=== PATIENT | female | born 1955 | race Caucasian/White ===

== ENCOUNTER → 2018-10-12 07:07 | Outpatient (CLI) | payer MEDICARE, SELFPAY ==
--- NOTE | 2018-10-12 10:28 | NEURO ---
NCS and/or EMG Patient Report Ordering Doctor: Sheldon Flower DATE OF SERVICE: 10/12/18 This is a bilateral upper extremity nerve conduction study performed on this 63-year-old female with a history of coldness sensation as well as numbness and tingling in both hands worse on the left. There is a history of carpal tunnel surgery on the left in 2017. No history of diabetes or neck pain. Bilateral upper extremity sensory and motor nerve conduction studies were performed demonstrating moderate prolongation of the median motor and sensory distal latencies with preservation of amplitudes and conduction velocities although there is asymmetric reduction of amplitude on the left consistent with worse symptoms on the left. The ulnar motor and sensory and radial sensory responses are normal. The median F wave latencies bilaterally are somewhat prolonged. Impression: Abnormal nerve conduction study of the bilateral upper extremities consistent with moderate residual bilateral carpal tunnel syndrome.
== END ==
PROVIDERS: Referring Provider Orthopaedic Surgery; Visit Provider Orthopaedic Surgery
DX: G56.02 Carpal tunnel syndrome, left upper limb (principal)
CPT/HCPCS: 95911

== ENCOUNTER → 2018-12-02 09:10 | Outpatient (CLI) | payer MEDICARE, SELFPAY ==
[2018-11-24 17:06] VITALS: BMI 19.7
[2018-12-02 12:43] LABS: Absolute Lymphocyte Count 2.24 X10^3/ul (0.83-4.51); Absolute Neutrophil Count 3.3 X10^3/uL (2.0-7.7); Basophil# 0.05 X10^3/uL; Basophil% 0.8 % (0-1); Eosinophil# 0.25 X10^3/uL; Eosinophils% 3.9 % (0-5); Hematocrit 45.6 % (37-47); Hemoglobin 15.7 g/dl (12.0-15.0); Lymphocyte # 2.24 X10^3/ul (4.0); Lymphocyte % 34.8 % (19-41); Mean Corp Hgb Conc 34.4 g/gl (32-36); Mean Corpuscular Volume 95.8 fL (81-99); Mean Platelet Vol. 10.3 fl (6.2-12.0); Monocyte# 0.58 X10^3/uL; Neutrophil # 3.32 X10^3/uL (2.7-7.7); Neutrophil % 51.5 % (47-70); Platelet Count 268 K/mm3 (150-450); RBC Distribution Width CV 12.9 % (11.6-14.6); RBC Distribution Width SD 44.3 fl (35.1-43.9); Red Blood Count 4.76 M/mm3 (4.2-5.4); White Blood Count 6.4 K/mm3 (4.4-11.0)
[2018-12-02 12:48] LABS: POSITIVE COUNT NO; POSITIVE DIFFERENTIAL NO; POSITIVE MORPHOLOGY NO
[2018-12-02 13:24] LABS: ALB/GLOB Ratio 0.7 RATIO (0.9-2.4); AST(SGOT) 29 U/L (15-37); Alanine Aminotransfer ALT/SGPT 37 U/L (13-56); Albumin, Serum 3.2 g/dL (3.2-5.0); Alkaline Phosphatase 90 U/L (45-117); Anion Gap 9 (5-15); BUN 6 mg/dL (7-18); BUN/Creat Ratio 12.3 RATIO (10-20); Calcium,Total 8.9 mg/dL (8.5-10.1); Chloride 101 mmol/L (98-107); Creatinine, Serum 0.49 mg/dL (0.55-1.02); EST Glomerular Filtration Rate 137 mL/min (>60); Est Glom Filt Rate - Afr Amer 166 mL/min (>60); Globulin 4.6 g/dL (2.2-4.2); Glucose 60 mg/dL (74-106); Potassium 4.1 mmol/L (3.5-5.1); Protein, Total 7.8 g/dL (6.4-8.2); Sodium Level 137 mmol/L (136-145); T4 Free Direct 0.83 ng/dL (0.76-1.46); Thyroid Stim Hormone (TSH) 1.86 uIU/mL (0.358-3.74)
== END ==
PROVIDERS: PCP Internal Medicine; Visit Provider Internal Medicine
DX: J44.9 Chronic obstructive pulmonary disease, unspecified (principal); F17.210 Nicotine dependence, cigarettes, uncomplicated; R63.4 Abnormal weight loss
CPT/HCPCS: 36415; 80053; 84439; 84443; 85025

== ENCOUNTER 2020-07-17 16:55 | Inpatient (IN) | payer MEDICARE, MEDICAID, SELFPAY ==
[2018-11-24 17:06] VITALS: BMI 19.7
[2020-07-17] VITALS (13 sets, daily range): BP systolic 118–172; BP diastolic 56–101; PULSE 110–132; RESP 20–30; TEMP 36.2–37; O2SAT 90–95; BMI 21.4
--- NOTE | 2020-07-17 17:05 | EKG12_ITS ---
Test Reason : CP Blood Pressure : / mmHG Vent. Rate : 126 BPM Atrial Rate : 126 BPM P-R Int : 160 ms QRS Dur : 086 ms QT Int : 310 ms P-R-T Axes : 078 063 074 degrees QTc Int : 448 ms Sinus tachycardia Otherwise normal ECG Confirmed by ADALBERTO PRIETO, ISAÍAS ([id number]), brands editor DEEP LOJA ([id number]) on 07/19/2020 8:26:39 AM Referred By: DAYSI Confirmed By:ISAÍAS GLOVER MD
[2020-07-17 17:18] LABS: Absolute Lymphocyte Count 0.29 X10^3/uL (0.83-4.51); Absolute Neutrophil Count 8.8 X10^3/uL (2.0-7.7); Basophil# 0.01 X10^3/uL; Basophil% 0.1 % (0-1); Eosinophil# 0.06 X10^3/uL; Eosinophils% 0.6 % (0-5); Hematocrit 37.8 % (37-47); Hemoglobin 13.9 g/dL (12.0-15.0); Lymphocyte # 0.29 X10^3/ul (4.0); Mean Corp Hgb Conc 36.8 g/dL (32-36); Mean Corpuscular Hgb 34.2 pg (27.0-32.0); Mean Corpuscular Volume 92.9 fL (81-99); Mean Platelet Vol. 10.5 fl (6.2-12.0); Monocyte# 0.34 X10^3/uL; Monocyte% 3.6 % (0-10); NRBC Flagged by Analyzer 0 % (0-5); Neutrophil # 8.83 X10^3/uL (2.7-7.7); Neutrophil % 92.3 % (47-70); POSITIVE DIFFERENTIAL YES; POSITIVE MORPHOLOGY YES; Platelet Count 224 K/mm3 (150-450); RBC Distribution Width CV 11.5 % (11.6-14.6); Red Blood Count 4.07 M/mm3 (4.2-5.4); White Blood Count 9.6 K/mm3 (4.4-11.0)
--- NOTE | 2020-07-17 17:27 | ED.DCSUM_ITS ---
History of Present Illness Chief Complaint: Chest Pain Informant: Patient Narrative: 64-year-old female who is a smoker for many years and a history of COPD presenting with shortness of breath for about a week. She states she feels like she is wheezing. Patient has not had fever, change in taste or smell, body aches. She does state that she feels chills. Patient had a family gathering on [place] of 8 people. Other than that she states he stays home. Patient states that she developed chest pain 2 days ago. It feels aching and is intermittent. Patient denies cardiac history. Past Medical History - Allergies and Home Meds Allergies/Adverse Reactions: Allergies No Known Allergies Allergy (Verified 07/17/20 17:03) Prior records reviewed: Yes Past Medical History: - - COPD, arthritis Surgical History: noncontributory Lives: Alone Smoking Status: Current every day smoker Alcohol: None Drugs: None Review of Systems General: Reports: - - Chills. Denies: Chills, Fever, Malaise Eyes: Denies: Visual changes - bilaterally, Diplopia ENT: Denies: Rhinorrhea, Sore throat Cardiovascular: Reports: Chest pain. Denies: Palpitations Respiratory: Reports: Dyspnea, Cough Gastrointestinal: Denies: Abdominal pain, Nausea Genitourinary: Denies: Dysuria, Hematuria Musculoskeletal: Denies: Myalgias, Arthralgias Skin: Denies: Rash, Abscess Neurological: Denies: Headache, Parasthesia, Numbness Psych: Denies: Depression, Anxiety Physical Exam Vital Signs/Narrative: Vital Signs Temp Pulse Resp BP Pulse Ox 07/17/20 17:09 92 07/17/20 17:01 97.1 F L 130 H 28 H 169/94 H 92 07/17/20 16:56 97.1 F L 132 H 30 H 169/94 H 90 General: Cachectic, No Acute Distress Head: Normocephalic, Atraumatic Eyes: Perrl, EOMI ENT: Dry mucous membranes. Negative for: No rhinorrhea, Nasal congestion Cardiovascular: Regular rhythm, Tachycardia Respiratory: No distress, Diminished - Diminished at bilateral bases., - - Bibasilar crackles.. Negative for: Retractions Extremities: Nontender, No edema Skin: Normal color, No rash. Negative for: Cyanosis, Diaphoresis Neurological: Alert, Oriented x3, Cranial nerves II-XII grossly intact Psychological: Normal affect, Normal Mood Diagnostic/Tx/Re-eval Clinical Impression(s) from Imaging Studies Chest X-Ray 07/17/20 17:28 IMPRESSION: Right basilar infiltrate. Electronically Signed: Luisania Leiva DO at 17:50 EST Tel [phone], Service support , Chest CTA 07/17/20 18:55 IMPRESSION: No demonstrated pulmonary embolism or arterial dissection. There is a right lower lobe infiltrate/consolidation. Mild patchy groundglass densities in the left lung. Electronically Signed: Luis Leiva DO at 20:00 EST Tel [phone], Service support , Laboratory Data 07/17/20 07/17/20 07/17/20 17:02 17:02 17:02 WBC 9.6 RBC 4.07 L Hgb 13.9 Hct 37.8 MCV 92.9 MCH 34.2 H MCHC 36.8 H RDW Std Deviation 39.0 RDW Coeff of [place] 11.5 L Plt Count 224 MPV 10.5 Immature Gran % (Auto) 0.400 Neut % (Auto) 92.3 H Lymph % (Auto) 3.0 L Frio % (Auto) 3.6 Eos % (Auto) 0.6 Baso % (Auto) 0.1 Absolute Neuts (auto) 8.8 H Absolute Lymphs (auto) 0.29 L Nucleated RBC % 0 Differential Comment SCANNED D-Dimer Quant (PE/DVT) 3.65 H* Sodium 122 L Potassium 2.8 L Chloride 82 L Carbon Dioxide 25.0 Anion Gap 15 BUN 30 H Creatinine 0.94 Estim Creat Clear Calc 60.34 Est GFR (MDRD) Af Amer 77 Est GFR (MDRD) Non-Af 64 BUN/Creatinine Ratio 31.8 H Glucose 93 Lactic Acid Calcium 8.8 Troponin I < 0.015 B-Natriuretic Peptide Procalcitonin Urine Color Urine Clarity Urine pH Ur Specific [place] Urine Protein Urine Glucose (UA) Urine Ketones Urine Occult Blood Urine Nitrite Urine Bilirubin Urine Urobilinogen Ur Leukocyte Esterase Urine RBC Urine WBC Ur Squamous Epith Cells Urine Bacteria Urine Mucus COVID-19 (YUMIKO) 07/17/20 07/17/20 07/17/20 17:02 17:02 17:40 WBC RBC Hgb Hct MCV MCH MCHC RDW Std Deviation RDW Coeff of [place] Plt Count MPV Immature Gran % (Auto) Neut % (Auto) Lymph % (Auto) Frio % (Auto) Eos % (Auto) Baso % (Auto) Absolute Neuts (auto) Absolute Lymphs (auto) Nucleated RBC % Differential Comment D-Dimer Quant (PE/DVT) Sodium Potassium Chloride Carbon Dioxide Anion Gap BUN Creatinine Estim Creat Clear Calc Est GFR (MDRD) Af Amer Est GFR (MDRD) Non-Af BUN/Creatinine Ratio Glucose Lactic Acid Calcium Troponin I B-Natriuretic Peptide 42.6 Procalcitonin 23.89 H Urine Color Urine Clarity Urine pH Ur Specific [place] Urine Protein Urine Glucose (UA) Urine Ketones Urine Occult Blood Urine Nitrite Urine Bilirubin Urine Urobilinogen Ur Leukocyte Esterase Urine RBC Urine WBC Ur Squamous Epith Cells Urine Bacteria Urine Mucus COVID-19 (YUMIKO) Negative 07/17/20 07/17/20 18:50 18:50 WBC RBC Hgb Hct MCV MCH MCHC RDW Std Deviation RDW Coeff of [place] Plt Count MPV Immature Gran % (Auto) Neut % (Auto) Lymph % (Auto) Frio % (Auto) Eos % (Auto) Baso % (Auto) Absolute Neuts (auto) Absolute Lymphs (auto) Nucleated RBC % Differential Comment D-Dimer Quant (PE/DVT) Sodium Potassium Chloride Carbon Dioxide Anion Gap BUN Creatinine Estim Creat Clear Calc Est GFR (MDRD) Af Amer Est GFR (MDRD) Non-Af BUN/Creatinine Ratio Glucose Lactic Acid 2.2 H* Calcium Troponin I B-Natriuretic Peptide Procalcitonin Urine Color Yellow Urine Clarity Clear Urine pH 5.0 Ur Specific [place] 1.015 Urine Protein 30 H Urine Glucose (UA) Normal Urine Ketones 5 H Urine Occult Blood 10 H Urine Nitrite Negative Urine Bilirubin Negative Urine Urobilinogen Normal Ur Leukocyte Esterase 25 H Urine RBC 0 SEEN Urine WBC 0-5 SEEN Ur Squamous Epith Cells 5-10 SEEN Urine Bacteria 1+ Urine Mucus 0 SEEN COVID-19 (YUMIKO) - Rhythm Strip Rhythm Strip: Sinus Rhythm Rate: 126 - EKG Initial EKG Interpretation: No Acute Injury Pattern, Sinus Tachycardia - Medical Decision Making Patient presenting with shortness of breath for several days as well as chest pain x2 days. She had EKG performed on arrival which showed sinus tachycardia without signs of ischemic change. Patient is tachypneic as well. Patient was pancultured and given a liter of fluids. She was tested for Covid while awaiting lab work. Patient's lab work shows no leukocytosis and lymphopenia. Her BMP shows a slight hypokalemia and this was replaced with oral potassium 40 mEq. She is dehydrated. Lactic acid 2.2 procalcitonin 23.89. Troponin negative. D-dimer is elevated at 3.65. Chest x-ray is interpreted by myself and radiology shows a right lower lobe infiltrate. Since her D-dimer was elevated I did obtain a CTA. This shows a right lower lobe infiltrate as well as groundglass opacities in the left lung. After negative Covid test patient was given more IV fluids given her dehydration and recent CTA. Patient remains tachypneic and tachycardic and since she needs sepsis criteria I started Rocephin and azithromycin. Discussed with hospitalist who recommended admitting her to [facility] given her labs being consistent with Covid even though her testing is negative. She will obtain ID consult to determine if retesting is appropriate. Patient will be admitted to [facility] in stabilized condition. Impression: 1. Right lower lobe infiltrate 2. Sepsis 3. Dehydration 4. Hypokalemia 5. Chest pain ED Disposition - Plan for ED Patient: Disposition: Acute Care Hospital [facility]
--- NOTE | 2020-07-17 17:28 | RAD_ITS ---
STUDY: X-RAY CHEST REASON FOR EXAM: Female, 64 years old. Chest pain off and on. SOB increasing over the last week. TECHNIQUE: Frontal view COMPARISON: 06/19/2015 FINDINGS: The lungs are expanded. Right basilar infiltrate. Normal size heart. Normal mediastinum and rich. Normal visualized pulmonary arteries. Normal visualized aortic arch and descending thoracic aorta. Mild degenerative changes and scoliosis of the thoracic spine. Normal visualized ribs, clavicles, and shoulders. There is no demonstrated abnormality of the visualized soft tissue structures of the upper abdomen. RAD/Chest 1 View (Portable) IMPRESSION: Right basilar infiltrate. Electronically Signed: Luis Leiva DO at 17:50 EST Tel [phone], Service support ,
[2020-07-17 17:32] LABS: Differential Indicated SCAN CRITERIA MET
[2020-07-17 17:39] LABS: D-Dimer Quantitative (DVT/PE) 3.65 FEU/ug/m (0.27-0.49)
[2020-07-17 17:41] LABS: Anion Gap 15 (5-15); BUN 30 mg/dL (7-18); BUN/Creat Ratio 31.8 RATIO (10-20); Calcium,Total 8.8 mg/dL (8.5-10.1); Chloride 82 mmol/L (98-107); Creatinine, Serum 0.94 mg/dL (0.55-1.02); EST Glomerular Filtration Rate 64 mL/min (>60); Est Glom Filt Rate - Afr Amer 77 mL/min (>60); Estimated Creatinine Clearance 60.34 ml/min; Glucose 93 mg/dL (74-106); Potassium 2.8 mmol/L (3.5-5.1); Sodium Level 122 mmol/L (136-145)
[2020-07-17 18:02] LABS: Differential Comment SCANNED
--- NOTE | 2020-07-17 18:55 | CT_ITS ---
STUDY: CTA CHEST REASON FOR EXAM: Female, 64 years old. CHEST PAIN WITH INCREASE SOB X 1 WEEK. COUGH AND CHILLS RADIATION DOSAGE (If Supplied By Facility): CTDIvol = ( 14.65 ) mGy, DLP = ( 263.43 ) mGycm TECHNIQUE: The examination was performed with the intravenous administration of IV 100mL Isovue-370. Post-processing of the angiographic images was performed, with multiplanar reformation and 3D reconstruction. Individualized dose optimization techniques were used for this CT. COMPARISON: None. FINDINGS: Normal enhancement of the main pulmonary artery and right and left pulmonary arteries. Normal enhancement of the bilateral peripheral pulmonary arteries. There is no demonstrated pulmonary embolism. Normal thoracic aorta and visualized great vessels. There is no demonstrated aortic dissection. Normal heart and pericardium. Normal mediastinum. Normal hilar regions. Normal visualized trachea and bronchi. The lungs are well expanded. There is a right lower lobe infiltrate/consolidation. Mild patchy groundglass densities in the left lung. Normal pleura. Normal chest wall structures. Mild degenerative vertebral changes. Normal visualized upper abdomen. CT/CTA Chest W/WO Contrast IMPRESSION: No demonstrated pulmonary embolism or arterial dissection. There is a right lower lobe infiltrate/consolidation. Mild patchy groundglass densities in the left lung. Electronically Signed: Luis Leiva DO at 20:00 EST Tel [phone], Service support ,
[2020-07-17 19:02] LABS: Mucous, Urine 0 SEEN /hpf (<or=2+); Red Blood Cells-Urine 0 SEEN /hpf (0-5)
[2020-07-17 19:12] LABS: Color, Urine Yellow (Yellow); Glucose, Dipstick Normal (Normal); Ketone-Dipstick 5 mg/dl (Negative); Leukocyte Esterase-Dipstick 25 /ul (Negative); Nitrite-Dipstick Negative (Negative); Occult Blood-Urine 10 /ul (Negative); Protein-Dipstick 30 mg/dl (Negative); Specific Gravity, Urine 1.015 (1.002-1.030); Urine Bilirubin Dipstick Negative (Negative); Urine Clarity Clear (Clear); Urine Urobilinogen Normal (Normal)
[2020-07-17 19:12] LABS: Probe Check PASS; Specimen Processing Control PASS
[2020-07-17 19:16] LABS: Bacteria 1+ /hpf (None Seen); Squamous Epithelial Cells - UA 5-10 SEEN /hpf (5-10); White Blood Cells 0-5 SEEN /hpf (0-5)
[2020-07-17] MEDS: Ipratropium 0.5 MG/2.5 ML SOLUTION INHALATION (19:21)
[2020-07-17 19:30] LABS: Procalcitonin 23.89 ng/mL (0.00-0.09)
[2020-07-17] MEDS: 0.9% Normal Saline 1,000 ML 999 ML IV ×2 (19:36→20:26)
[2020-07-17] MEDS: Morphine 4 MG/ML Syringe IV (19:53)
[2020-07-17] MEDS: Ondansetron 4 MG/2 ML Vial IV (19:54)
[2020-07-17 20:09] LABS: Lactic Acid 2.2 mmol/L (0.4-1.9)
--- NOTE | 2020-07-17 20:37 | PCM.HP.STD ---
Problem List (1) Pneumonia Status: Acute Qualifiers: Pneumonia type: due to unspecified organism Laterality: right Lung location: lower lobe of lung Qualified Code(s): J18.9 - Pneumonia, unspecified organism (2) Suspected COVID-19 virus infection Status: Acute (3) Hypokalemia Status: Acute (4) Hyponatremia Status: Acute History of Present Illness Date of Admission: 07/17/20 Chief Complaint: Chest pain, shortness of breath ongoing for 3 days The patient is a 64 year old F with past medical history of COPD, not on oxygen who comes in with progressive shortness of breath, chest discomfort and chills. This has been going on for about 2 to 3 days. She denied any fever or dizziness or palpitation. Patient told the ED physician that she had family gathering at [place]. She denied any sick contact. She stated that she goes to the grocery store and has been wearing a mask. She has a cough that is productive. She also has diarrhea that started yesterday, profuse. No bowel movement today. She complains of feeling generally unwell. Vitals in the ED showed temperature 97.1 F, heart rate 132, blood pressure 169/94, respiratory rate 30, SPO2 was 90% on room air. WBC count was 9.6, hemoglobin 13.9, platelet count 224, D-dimer was 3.65, sodium 132, potassium 2.8, chloride 82, bicarbonate 25, BUN 30, creatinine 0.94, lactic acid 2.2, magnesium and LFTs were pending. Procalcitonin was 23.89, UA unremarkable. COVID-19 PCR negative. BNP up was 42.6 Chest x-ray showed right basilar infiltrate. CTA of the chest was negative for acute PE; it showed right lower lobe infiltrate/consolidation, mild patchy groundglass densities in the left lung Past Medical History Past Medical History (Chronic Problems): Chronic Problems (Last Updated 11/24/18 @ 16:58 by Emily Jay) Unintentional weight loss (Chronic) Vitamin deficiency (Chronic) Vision problems (Chronic) Arthritis (Chronic) Medical History: Medical History (Last Updated 11/24/18 @ 16:58 by Emily Jay) Vitamin deficiency (Chronic) E56.9 Vision problems (Chronic) H54.7 Carpal tunnel syndrome (Acute) G56.00 UTI (urinary tract infection) (Acute) N39.0 Arthritis (Chronic) M19.90 Allergies No Known Allergies Allergy (Verified 07/17/20 17:03) Home Medications: Ambulatory Orders Medication Instructions Recorded albuterol sulfate 90 mcg/actuation 1 inh INHALATION Q6H PRN #1 ea 11/24/18 breath activated powder inhaler guaifenesin 600 mg tablet, 600 mg PO BID PRN #60 tab 11/24/18 extended release 12 hr Surgical History: Surgical History (Last Updated 11/24/18 @ 16:58 by Emily Jay) History of Z98.891 1994 Surgical History: - - History of section Psychiatric History: No pertinent psych hx 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 Lives: Alone Smoking Status: Current every day smoker Tobacco Use: Cigarettes Alcohol: None Drugs: None - *Family History Maternal Family History: Family History (Last Updated 11/24/18 @ 16:59 by Emily Jay) Grandfather Alcoholism Mother Colon cancer Diabetes Father Myocardial infarction Brother Myocardial infarction Sister Ovarian cancer History Items: Cancer - colon Paternal Family History: Family History (Last Updated 11/24/18 @ 16:59 by Emily Jay) Grandfather Alcoholism Mother Colon cancer Diabetes Father Myocardial infarction Brother Myocardial infarction Sister Ovarian cancer History Items: Heart Disease - CT Review of Systems Constitutional: Reports: Anorexia, Chills, Malaise, Weakness, Fatigue. Denies: Fever, Night Sweats, Weight Change Eyes: Denies: Blurred vision, Cataracts, Conjunctivae Inflammation, Pain, Redness, Vision Change HEENT: Denies: Difficulty Hearing, Difficulty Swallowing, Head Aches, Hearing Changes, Sinus Congestion, Sinus Drainage Cardiovascular: Reports: Chest Pain, Orthopnea, Paroxysmal Noc. Dyspnea. Denies: Claudication, Edema, Light Headedness, Palpitations, Syncope Respiratory: Denies: Cough, Shortness of breath at rest, Sputum production Gastrointestinal: Reports: Diarrhea. Denies: Abdominal Pain, Constipation, Hematemesis, Hematochezia, Nausea, Melena, Vomiting Genitourinary: Denies: Dysuria, Frequency, Incontinence, Nocturia Musculoskeletal: Denies: Joint Pain, Joint stiffness, Joint swelling, Joint Tenderness Skin: Denies: Rash, Wounds Neurological: Denies: Difficulty swallowing, Focal weakness, Numbness, Tingling Psychiatric: Denies: Anxiety, Depression, Homicidal Ideations, Suicidal Ideations Hematologic/ Lymphatic: Denies: Easy Bruising, Easy Bleeding VTE Information - Inpt Only VTE Present on Admission: No VTE Pharm Prophylaxis ordered?: Yes - Physical Exam Vitals/I&O's: Vital Signs Temp Pulse Resp BP Pulse Ox 97.3 F L 115 H 20 H 127/80 H 93 07/17/20 20:00 07/17/20 20:00 07/17/20 20:00 07/17/20 20:00 07/17/20 20:00 Oxygen Delivery Method Room Air Weight: 61.961 kg Body Mass Index (BMI) 21.4 General: Alert, Oriented x3, Cooperative, - - in mild respiratory distress HEENT: Atraumatic, PERRLA, EOMI, Normocephalic Oral: Moist Mucosa Neck: Supple Lungs: Diminished Cardiovascular: Regular rate, Regular Rhythm, Normal S1, Normal S2, No murmurs Abdomen: Bowel Sounds Present, Soft, Non Tender, Non-Distended, No Hepato-splenomegaly Extremities: No edema Skin: No rashes Musculoskeletal: No Tenderness to Palpation of Joints or Extremities Neurological: Cranial nerves II-XII grossly intact, Neuro grossly intact Psych/Mental Status: Normal Affect, Appropriate Laboratory Results 07/17/20 17:02: WBC 9.6, RBC 4.07 L, Hgb 13.9, Hct 37.8, MCV 92.9, MCH 34.2 H, MCHC 36.8 H, RDW Std Deviation 39.0, RDW Coeff of [place] 11.5 L, Plt Count 224, MPV 10.5, Immature Gran % (Auto) 0.400, Neut % (Auto) 92.3 H, Lymph % (Auto) 3.0 L, [place] % (Auto) 3.6, Eos % (Auto) 0.6, Baso % (Auto) 0.1, Absolute Neuts (auto) 8.8 H, Absolute Lymphs (auto) 0.29 L, Nucleated RBC % 0, Differential Comment SCANNED 07/17/20 17:02: D-Dimer Quant (PE/DVT) 3.65 H* 07/17/20 17:02: Sodium 122 L, Potassium 2.8 L, Chloride 82 L, Carbon Dioxide 25.0, Anion Gap 15, BUN 30 H, Creatinine 0.94, Estim Creat Clear Calc 60.34, Est GFR (MDRD) Af Amer 77, Est GFR (MDRD) Non-Af 64, BUN/Creatinine Ratio 31.8 H, Glucose 93, Calcium 8.8, Troponin I < 0.015 07/17/20 17:02: Procalcitonin 23.89 H 07/17/20 17:40: COVID-19 (YUMIKO) Negative 07/17/20 18:50: Lactic Acid 2.2 H* 07/17/20 18:50: Urine Color Yellow, Urine Clarity Clear, Urine pH 5.0, Ur Specific [place] 1.015, Urine Protein 30 H, Urine Glucose (UA) Normal, Urine Ketones 5 H, Urine Occult Blood 10 H, Urine Nitrite Negative, Urine Bilirubin Negative, Urine Urobilinogen Normal, Ur Leukocyte Esterase 25 H, Urine RBC 0 SEEN, Urine WBC 0-5 SEEN, Ur Squamous Epith Cells 5-10 SEEN, Urine Bacteria 1+, Urine Mucus 0 SEEN Current Medications Sodium Chloride () 1,000 mls @ 999 mls/hr IV .Q1H1M ONE Stop: 07/17/20 21:10 Last Admin: 07/17/20 20:26 Dose: 999 mls/hr Documented by: Ceftriaxone Sodium (Rocephin) 1 gm in 50 mls @ 100 mls/hr IV X1 ONE Stop: 07/17/20 21:01 Azithromycin 500 mg/ Dextrose 255 mls @ 250 mls/hr IV X1 ONE Stop: 07/17/20 21:33 Assessment/Plan All Active Problems (Last Updated 11/24/18 @ 16:58 by Emily Jay) Pneumonia (Acute) Suspected COVID-19 virus infection (Acute) Hypokalemia (Acute) Hyponatremia (Acute) Carpal tunnel syndrome (Acute) UTI (urinary tract infection) (Acute) 1. Suspected acute COVID-19 infection, patient's admitting COVID-19 PCR negative Patient admitting chest x-ray and CT suggestive of groundglass infiltrates, Noted right lower lobe infiltrate. D-dimer and procalcitonin elevated. Lymphopenia seen on CBCD We will keep patient in isolation, ID consult, possible retest of Covid PCR ID to decide if patient should be out of isolation and on a regular floor Would hold off on ordering Decadron as patient has no hypoxia 2. Acute right lower lobe pneumonia, seen on chest x-ray and CAT scan Started on IV ceftriaxone and azithromycin Would order urine streptococcal and Legionella antigen Incentive spirometer 3. Lactic acidosis secondary to #1 and 2 Not secondary to sepsis Continue on IV fluids, repeat lactic acid per protocol 4. Hyponatremia/hypokalemia secondary to acute diarrhea Replaced, recheck in a.m. Check magnesium level 5. Acute diarrhea, unclear etiology, currently not present We will continue to monitor 6. Nicotine dependence, advised to quit, on replacement 7. COPD, not in acute exacerbation at the moment We will continue to monitor, breathing treatments as needed 8. DVT prophylaxis?Lovenox subcu 9. CODE STATUS: full code I discussed and explained in details the various types of CODE STATUS-full code, DNR CCA, DNR CC. Cannot opted for full code and want aggressive measures should she have a cardiopulmonary arrest. Time spent discussing CODE STATUS 16 minutes Inpatient E&M: 91512 Init Hosp L3 Procedures: 12958 Advncd Care Plan 30 Min
[2020-07-17] MEDS: Ceftriaxone 1 GM/50 ML BAG IV (20:53)
[2020-07-17 21:01] LABS: BNP,B-Type NATRIURETIC PEPTIDE 42.6 pg/mL (0-100)
--- NOTE | 2020-07-17 22:12 | NURSING ---
PANDEMIC DOCUMENTATION INITIATED: Date:07-17-2020 Time: 2209
[2020-07-17 23:03] LABS: Reflex Lactate? Y
[2020-07-17 23:08] LABS: AST(SGOT) 27 U/L (15-37); Alanine Aminotransfer ALT/SGPT 22 U/L (13-56); Albumin, Serum 2.9 g/dL (3.2-5.0); Alkaline Phosphatase 66 U/L (45-117); Bilirubin, Direct 0.66 mg/dL (0.00-0.30); Globulin 4.5 g/dL (2.2-4.2); Magnesium 1.5 mg/dL (1.6-2.6); Protein, Total 7.4 g/dL (6.4-8.2)
[2020-07-17] MEDS: Enoxaparin 40 MG/0.4 ML Syringe SC (23:14)
[2020-07-17] MEDS: 0.9% Normal Saline 1,000 ML 75 ML IV (23:34)
[2020-07-17] MEDS: Potassium Chloride 10mEq/100mL 10 MEQ/100 ML IV.SOLN. 100 MEQ IV BOLUS (23:41)
[2020-07-17] MEDS: 0.9% Saline Lock 10 ML Syringe IV (23:45)
[2020-07-17] MEDS: Morphine 2 MG/ML Syringe IV (23:46)
[2020-07-17] MEDS: guaiFENesin 10 ML UDC (200MG/10ML) 20 ML PO (23:51)
[2020-07-18] VITALS (8 sets, daily range): BP systolic 129–165; BP diastolic 68–106; PULSE 109–125; RESP 18–20; TEMP 36.7–37.1; O2SAT 92–97; BMI 20.4
[2020-07-18] MEDS: 0.9% Saline Lock 10 ML Syringe IV ×2 (00:25→03:33)
[2020-07-18 00:53] LABS: Lactic Acid 2.4 mmol/L (0.4-1.9)
[2020-07-18] MEDS: Potassium Chloride 10mEq/100mL 10 MEQ/100 ML IV.SOLN. 100 MEQ IV BOLUS ×3 (01:23→03:32)
[2020-07-18] MEDS: Acetaminophen 325 MG Tablet 650 MG PO ×2 (03:39→22:57)
[2020-07-18] MEDS: BENZOCAINE/MENTHOL 1 LOZENGE MUCOUS MEM ×4 (03:40→22:58)
--- NOTE | 2020-07-18 05:16 | PCM.PN.BLA ---
Progress Note Called that patient has gram-positive cocci growing from initial blood cultures No fevers noted since admission Patient is on IV ceftriaxone and azithromycin for pneumonia Would add IV vancomycin; pharmacy to dose ID consulted STROKE Vital Signs/Narrative: Vital Signs Temp Pulse Resp BP Pulse Ox 07/18/20 04:11 20 H 07/18/20 01:29 98.7 F 113 H 20 H 136/68 H 94
[2020-07-18 07:24] LABS: Absolute Lymphocyte Count 0.25 X10^3/uL (0.83-4.51); Absolute Neutrophil Count 3.8 X10^3/uL (2.0-7.7); Basophil# 0.03 X10^3/uL; Basophil% 0.7 % (0-1); Eosinophil# 0.01 X10^3/uL; Eosinophils% 0.2 % (0-5); Hematocrit 34.4 % (37-47); Hemoglobin 12.3 g/dL (12.0-15.0); Lymphocyte # 0.25 X10^3/ul (4.0); Lymphocyte % 5.6 % (19-41); Mean Corp Hgb Conc 35.8 g/dL (32-36); Mean Corpuscular Hgb 33.4 pg (27.0-32.0); Mean Corpuscular Volume 93.5 fL (81-99); Mean Platelet Vol. 10.3 fl (6.2-12.0); Monocyte# 0.36 X10^3/uL; NRBC Flagged by Analyzer 0 % (0-5); Neutrophil # 3.75 X10^3/uL (2.7-7.7); Neutrophil % 83.7 % (47-70); POSITIVE DIFFERENTIAL YES; POSITIVE MORPHOLOGY YES; Platelet Count 163 K/mm3 (150-450); RBC Distribution Width CV 11.4 % (11.6-14.6); RBC Distribution Width SD 39.1 fl (35.1-43.9); Red Blood Count 3.68 M/mm3 (4.2-5.4); White Blood Count 4.5 K/mm3 (4.4-11.0)
[2020-07-18 07:28] LABS: Differential Indicated SCAN CRITERIA MET
--- NOTE | 2020-07-18 07:42 | NURSING ---
Darvin due at 0600, waiting for Mg to finish infusing. ANIRUDH Coates will hang Darvin.
[2020-07-18 07:46] LABS: ALB/GLOB Ratio 0.7 RATIO (0.9-2.4); AST(SGOT) 18 U/L (15-37); Alanine Aminotransfer ALT/SGPT 16 U/L (13-56); Albumin, Serum 2.2 g/dL (3.2-5.0); Alkaline Phosphatase 51 U/L (45-117); Anion Gap 11 (5-15); BUN 20 mg/dL (7-18); BUN/Creat Ratio 39.1 RATIO (10-20); Calcium,Total 7.8 mg/dL (8.5-10.1); Chloride 93 mmol/L (98-107); Creatinine, Serum 0.51 mg/dL (0.55-1.02); EST Glomerular Filtration Rate 129 mL/min (>60); Est Glom Filt Rate - Afr Amer 156 mL/min (>60); Estimated Creatinine Clearance 106.88 ml/min; Glucose 82 mg/dL (74-106); Magnesium 2.1 mg/dL (1.6-2.6); Potassium 3.3 mmol/L (3.5-5.1); Protein, Total 5.2 g/dL (6.4-8.2); Sodium Level 128 mmol/L (136-145)
[2020-07-18] MEDS: Enoxaparin 40 MG/0.4 ML Syringe SC ×2 (08:13→20:15)
[2020-07-18] MEDS: Umeclidinium Bromide Inhaler 1 PUFF IH (08:14)
[2020-07-18] MEDS: dexAMETHasone 4 MG Tablet 6 MG PO (09:41)
--- NOTE | 2020-07-18 09:51 | PN_ITS ---
Patient Problems: Active and Suspected Problems (Last Updated 07/18/20 @ 09:[address] Isabel Parekh MD) Pneumonia (Acute) Suspected COVID-19 virus infection (Acute) Hypokalemia (Acute) Hyponatremia (Acute) Subjective: Chief complaint: Follow-up after admission for right lower lobe community- acquired pneumonia, severe sepsis, suspected COVID-19 pneumonia. Patient seen and examined. No acute events overnight. She mentioned that his breathing is almost the same, minimal improvement. Denied chest pain today. Reported cough without sputum production. Today, she is afebrile, tachycardic, blood pressure stable, pulse ox is 92% on room air. - Physical Exam Vitals/I&O's: Vital Signs Temp Pulse Resp BP Pulse Ox 98.1 F 115 H 20 H 144/86 H 92 07/18/20 08:26 07/18/20 08:26 07/18/20 08:26 07/18/20 08:26 07/18/20 08:26 Oxygen Delivery Method Room Air Weight: 130 lb 8 oz Body Mass Index (BMI) 20.0 Intake and Output for Last 24 Hours 07/16/20 07/17/20 07/18/20 23:59 23:59 23:59 Intake Total 2305 / 2305 1769 / 1769 Balance 2305 / 2305 1769 / 1769 General: Alert, Oriented x3, Cooperative, - - Minimally short of breath. HEENT: Atraumatic, PERRLA, EOMI, Normocephalic Oral: Moist Mucosa, No Gingival or Mucosal Lesions/ Ulcerations Neck: Supple, No JVD, Negative Carotid Bruits, Trachea Midline, Thyroid Normal Size and Texture Lungs: No rhonchi, No wheeze, No rales, Diminished, Short of Breath, - - Decreased breath sounds bilateral, more at the right base. Cardiovascular: Regular rate, Regular Rhythm, Normal S1, Normal S2, PMI Normal, Tachycardic Abdomen: Bowel Sounds Present, Soft, Non Tender, Non-Distended, No Hepato- splenomegaly Extremities: No clubbing, No cyanosis, No edema Skin: No rashes, No breakdown Lymphatic: No Cervical, Supraclavicular, or Inguinal Adenopathy Neurological: Cranial nerves II-XII grossly intact, Motor Exam 5/5 strength throughout Psych/Mental Status: Normal Affect, Appropriate, Alert and oriented to time, place, person, mood and affect Microbiology Past 72 Hours 07/17/20 18:50 Blood Culture (Wb) - Anticubital Right Bacteria Detection (PCR) - Final Streptococcus pneumoniae 07/17/20 18:50 Blood Culture (Wb) - Anticubital Right Blood Culture - Preliminary 07/18/20 Unknown Urine, Clean Catch Streptococcus pneumoniae Antigen (M - Final Streptococcus pneumonia Ag 07/18/20 Unknown Urine, Clean Catch Legionella Antigen - Final 07/17/20 18:50 Blood Culture (Wb) - Anticubital Left Blood Culture - Preliminary Laboratory Results 07/17/20 17:02: WBC 9.6, RBC 4.07 L, Hgb 13.9, Hct 37.8, MCV 92.9, MCH 34.2 H, MCHC 36.8 H, RDW Std Deviation 39.0, RDW Coeff of [place] 11.5 L, Plt Count 224, MPV 10.5, Immature Gran % (Auto) 0.400, Neut % (Auto) 92.3 H, Lymph % (Auto) 3.0 L, [place] % (Auto) 3.6, Eos % (Auto) 0.6, Baso % (Auto) 0.1, Absolute Neuts (auto) 8.8 H, Absolute Lymphs (auto) 0.29 L, Nucleated RBC % 0, Differential Comment SCANNED 07/17/20 17:02: D-Dimer Quant (PE/DVT) 3.65 H* 07/17/20 17:02: Sodium 122 L, Potassium 2.8 L, Chloride 82 L, Carbon Dioxide 25.0, Anion Gap 15, BUN 30 H, Creatinine 0.94, Estim Creat Clear Calc 60.34, Est GFR (MDRD) Af Amer 77, Est GFR (MDRD) Non-Af 64, BUN/Creatinine Ratio 31.8 H, Glucose 93, Calcium 8.8, Troponin I < 0.015 07/17/20 17:02: Procalcitonin 23.89 H 07/17/20 17:02: B-Natriuretic Peptide 42.6 07/17/20 17:02: Magnesium 1.5 L, Total Bilirubin 1.10 H, Direct Bilirubin 0.66 H , AST 27, ALT 22, Alkaline Phosphatase 66, Total Protein 7.4, Albumin 2.9 L, Globulin 4.5 H 07/17/20 17:40: COVID-19 (YUMIKO) Negative 07/17/20 18:50: Lactic Acid 2.2 H* 07/17/20 18:50: Urine Color Yellow, Urine Clarity Clear, Urine pH 5.0, Ur Specific [place] 1.015, Urine Protein 30 H, Urine Glucose (UA) Normal, Urine Ketones 5 H, Urine Occult Blood 10 H, Urine Nitrite Negative, Urine Bilirubin Negative, Urine Urobilinogen Normal, Ur Leukocyte Esterase 25 H, Urine RBC 0 SEEN, Urine WBC 0-5 SEEN, Ur Squamous Epith Cells 5-10 SEEN, Urine Bacteria 1+, Urine Mucus 0 SEEN 07/17/20 23:59: Lactic Acid 2.4 H* 07/18/20 07:05: WBC 4.5, RBC 3.68 L, Hgb 12.3, Hct 34.4 L, MCV 93.5, MCH 33.4 H, MCHC 35.8, RDW Std Deviation 39.1, RDW Coeff of [place] 11.4 L, Plt Count 163, MPV 10.3, Immature Gran % (Auto) 1.800 H, Neut % (Auto) 83.7 H, Lymph % (Auto) 5.6 L , [place] % (Auto) 8.0, Eos % (Auto) 0.2, Baso % (Auto) 0.7, Absolute Neuts (auto) 3.8, Absolute Lymphs (auto) 0.25 L, Nucleated RBC % 0 07/18/20 07:05: Sodium 128 L, Potassium 3.3 L, Chloride 93 L, Carbon Dioxide 24.0, Anion Gap 11, BUN 20 H, Creatinine 0.51 L, Estim Creat Clear Calc 106.88, Est GFR (MDRD) Af Amer 156, Est GFR (MDRD) Non-Af 129, BUN/Creatinine Ratio 39.1 H, Glucose 82, Calcium 7.8 L, Magnesium 2.1, Total Bilirubin 0.80, AST 18, ALT 16, Alkaline Phosphatase 51, Total Protein 5.2 L, Albumin 2.2 L, Globulin 3.0, Albumin/Globulin Ratio 0.7 L Clinical Impression(s) from Imaging Studies Chest X-Ray 07/17/20 17:28 IMPRESSION: Right basilar infiltrate. Electronically Signed: Luis Leiva DO at 17:50 EST Tel [phone], Service support , Chest CTA 07/17/20 18:55 IMPRESSION: No demonstrated pulmonary embolism or arterial dissection. There is a right lower lobe infiltrate/consolidation. Mild patchy groundglass densities in the left lung. Electronically Signed: Luis Cali, DO at 20:00 EST Tel [phone], Service support , Current Medications Acetaminophen (Acetaminophen 325 Mg Tablet) 650 mg PO Q6H PRN PRN PRN Reason: Pain Score 1-10/Temp > 100.7 F Last Admin: 07/18/20 03:39 Dose: 650 mg Documented by: Al Hydroxide/Mg Hydroxide (Mag Hydrox/Al Hydrox/Simeth 30 Ml Udc) 30 ml PO Q6H PRN PRN PRN Reason: Gastric Burning Albuterol Sulfate (Albuterol Sulfate 18 Gm Inhaler (200 Puffs)) 1 puff IH Q4HWA.RT AFIA Dexamethasone (Dexamethasone 4 Mg Tablet) 6 mg PO DAILY AFIA Stop: 07/27/20 10:01 Last Admin: 07/18/20 09:41 Dose: 6 mg Documented by: Enoxaparin Sodium (Enoxaparin 40 Mg/0.4 Ml Syringe) 40 mg SC DAILY [facility] Last Admin: 07/18/20 08:13 Dose: 40 mg Documented by: Guaifenesin (Guaifenesin 600 Mg Tablet) 600 mg PO BID PRN PRN PRN Reason: congestion Guaifenesin (Guaifenesin 10 Ml Udc (200mg/10ml)) 20 ml PO Q4H PRN PRN PRN Reason: COUGH Last Admin: 07/17/20 23:51 Dose: 20 ml Documented by: Sodium Chloride () 250 mls @ 15 mls/hr IV .[id number] PRN PRN Reason: Saline Flush Sodium Chloride () 250 mls @ 15 mls/hr IV .[id number] PRN PRN Reason: Additional IVPB Infusion Ceftriaxone Sodium 2 gm/ (Sodium Chloride) 50 mls @ 100 mls/hr IV Q24 [facility] Last Admin: 07/18/20 09:41 Dose: 100 mls/hr Documented by: Influenza Virus Vaccine Quadrival (Influenza Vaccine (6mos+)/Pf 0.5 Ml Syringe) 0.5 ml IM .ONCE ONE Stop: 07/18/20 10:01 Last Admin: 07/18/20 08:17 Dose: 0.5 ml Documented by: Miscellaneous Information (Inhaler, Assist Devices 1 Each Spacer) 1 each INHALATION PRN PRN PRN Reason: WITH ALBUTEROL INHALER Morphine Sulfate (Morphine 2 Mg/Ml Syringe) 2 mg IV Q3H PRN PRN PRN Reason: Pain Score 6-10 Last Admin: 07/17/20 23:46 Dose: 2 mg Documented by: Nicotine (Nicotine 21 Mg Patch) 21 mg TD DAILY [facility] Last Admin: 07/18/20 08:13 Dose: 21 mg Documented by: Nicotine Polacrilex (Nicotine Polacrilex 2 Mg Gum) 2 mg PO Q2H PRN PRN PRN Reason: Nicotine Craving Nutritional Formula (Lactose Free) (Ensure Enlive 120 Ml Liquid) 120 ml PO 4X/DAYCM [facility] Last Admin: 07/18/20 09:41 Dose: Not Given Documented by: Ondansetron HCl (Ondansetron 4 Mg/2 Ml Vial) 4 mg IV Q8H PRN PRN PRN Reason: NAUSEA/VOMITING Senna/Docusate Sodium (Senna/Docusate Sodium 1 Tablet) 2 tablet PO BID PRN PRN PRN Reason: Constipation Sodium Chloride (0.9% Saline Lock 10 Ml Syringe) 10 - 40 ml IV UD PRN PRN Reason: SALINE FLUSH Last Admin: 07/18/20 03:33 Dose: 10 ml Documented by: Throat Lozenges (Benzocaine/Menthol 1 Lozenge) 1 lozenge MUCOUS MEM Q2H PRN PRN PRN Reason: COUGH IF ROBITUSSIN INEFFECTIV Last Admin: 07/18/20 09:41 Dose: 1 lozenge Documented by: Umeclidinium [place] (Umeclidinium [place] Inhaler) 1 puff IH DAILY [facility] Last Admin: 07/18/20 08:14 Dose: 1 puff Documented by: Medical Necessity - Tobacco Use Smoking Status: Current every day smoker Tobacco Use: Cigarettes Assessment/Plan All Active Problems (Last Updated 07/18/20 @ 09:[address] Isabel Parekh MD) Pneumonia (Acute) Suspected COVID-19 virus infection (Acute) Hypokalemia (Acute) Hyponatremia (Acute) This is a 64 years old female patient presented to the emergency room because of shortness of breath and chest pain, found to have right basilar infiltrate on chest x-ray, right lower lobe infiltrate and mild patchy groundglass opacities on the left lung, tested negative for COVID-19 by PCR and she was admitted for community-acquired pneumonia, severe sepsis as well as suspected COVID-19 pneumonia. #1 right lower lobe community-acquired streptococcal pneumonia/severe sepsis: Chest x-ray and CTA chest reviewed. She is on IV Rocephin and Zithromax but Zithromax discontinued by infectious disease. Pneumococcal antigen was positive. Blood culture revealed strep pneumoniae. Urine cultures pending. Currently, she is afebrile, tachycardic, blood pressure stable, pulse ox is 92% on room air. Plan to continue same treatment, repeat CBC and BMP tomorrow morning. #2 streptococcal bacteremia: Probable source is the pneumonia. Currently, she is on IV Rocephin. Vitals are stable except tachycardia as above. Plan to monitor. #2 suspected COVID-19 pneumonia/high suspicion: COVID-19 was negative. CTA chest revealed a right lower lobe consolidation in addition to groundglass opacities in the left lung. Started on p.o. Decadron. She is on Lovenox twice daily. Infectious disease consulted, appreciate recommendations. She is on room air, pulse ox 92%. #3 hypokalemia/hyponatremia/hypomagnesemia: Sodium is 122, improved to 128 today, could be due to SIADH secondary to pneumonia. Potassium today is 3.3, improved. Magnesium was 1.5, today it is 2.1. Plan to continue IV fluids with potassium replacement, repeat BMP tomorrow morning. #4 suspected COPD: Patient does smoke, uses albuterol inhaler as needed. She mentioned that she never been diagnosed with COPD officially. Currently, she is on albuterol inhaler as needed, pulse ox is 92% on room air. #5 tobacco abuse: Continue NicoDerm patch. #6 DVT prophylaxis: Subcu Lovenox twice daily. This note was generated with [employer]os[employer] software. It may contain incorrect words, spelling, and punctuation that were not noted in checking the note before signing. Inpatient E&M: 39713 Subs Hosp L2
--- NOTE | 2020-07-18 10:00 | CON.PCM_ITS ---
Problem List (1) Pneumonia Status: Acute Qualifiers: Pneumonia type: due to unspecified organism Laterality: right Lung location: lower lobe of lung Qualified Code(s): J18.9 - Pneumonia, unspecified organism Reason for Consult: CAP Consulted by: Dr. Parekh History of Present Illness: The patient is a 64 year old F, smoker, presented yesterday with 2 days of cough, sputum, dyspnea, not feeling well. Some loss of appetite, headache. No change in taste or smell. Chronic muscle aches. Some diarrhea. Was with extended family on xmas, but no one sick. Roommate recently tested neg for covid after having fever. Came to ED, found to have pneumonia, lymphopenia. Admitted on ceftriaxone/azithro, vanc added after bcx turned (+). Full ROS performed and neg except as noted above. - Medical History Past Medical History (Chronic Problems): Chronic Problems (Last Updated 07/18/20 @ 09:[address] Isabel Parekh MD) Unintentional weight loss (Chronic) Vitamin deficiency (Chronic) Arthritis (Chronic) Allergies/Adverse Reactions: Allergies No Known Allergies Allergy (Verified 07/17/20 17:03) Home Medications: Ambulatory Orders Medication Instructions Recorded albuterol sulfate 90 mcg/actuation 1 inh INHALATION Q6H PRN #1 ea 11/24/18 breath activated powder inhaler guaifenesin 600 mg tablet, 600 mg PO BID PRN #60 tab 11/24/18 extended release 12 hr - Social History Tobacco Use: cigarettes Vital Signs Temp Pulse Resp BP Pulse Ox 98.1 F 115 H 20 H 144/86 H 92 07/18/20 08:26 07/18/20 08:26 07/18/20 08:26 07/18/20 08:26 07/18/20 08:26 Oxygen Delivery Method Room Air Weight: 59.194 kg Body Mass Index (BMI) 20.0 Microbiology Past 72 Hours 07/17/20 18:50 Bacteria Detection (PCR) - Final Blood Culture (Wb) - Anticubital Right Streptococcus pneumoniae Blood Culture - Preliminary 07/18/20 Unknown Streptococcus pneumoniae Antigen (M - Final Urine, Clean Catch Streptococcus pneumonia Ag 07/18/20 Unknown Legionella Antigen - Final Urine, Clean Catch 07/17/20 18:50 Blood Culture - Preliminary Blood Culture (Wb) - Anticubital Left Laboratory Tests Past 24 Hrs 07/17/20 07/17/20 07/17/20 17:02 17:02 17:02 WBC 9.6 RBC 4.07 L Hgb 13.9 Hct 37.8 MCV 92.9 MCH 34.2 H MCHC 36.8 H RDW Std Deviation 39.0 RDW Coeff of [place] 11.5 L Plt Count 224 MPV 10.5 Immature Gran % (Auto) 0.400 Neut % (Auto) 92.3 H Lymph % (Auto) 3.0 L [place] % (Auto) 3.6 Eos % (Auto) 0.6 Baso % (Auto) 0.1 Absolute Neuts (auto) 8.8 H Absolute Lymphs (auto) 0.29 L Nucleated RBC % 0 Differential Comment SCANNED D-Dimer Quant (PE/DVT) 3.65 H* Sodium 122 L Potassium 2.8 L Chloride 82 L Carbon Dioxide 25.0 Anion Gap 15 BUN 30 H Creatinine 0.94 Estim Creat Clear Calc 60.34 Est GFR (MDRD) Af Amer 77 Est GFR (MDRD) Non-Af 64 BUN/Creatinine Ratio 31.8 H Glucose 93 Lactic Acid Calcium 8.8 Magnesium Total Bilirubin Direct Bilirubin AST ALT Alkaline Phosphatase Troponin I < 0.015 B-Natriuretic Peptide Total Protein Albumin Globulin Albumin/Globulin Ratio Procalcitonin Urine Color Urine Clarity Urine pH Ur Specific [place] Urine Protein Urine Glucose (UA) Urine Ketones Urine Occult Blood Urine Nitrite Urine Bilirubin Urine Urobilinogen Ur Leukocyte Esterase Urine RBC Urine WBC Ur Squamous Epith Cells Urine Bacteria Urine Mucus COVID-19 (YUMIKO) 07/17/20 07/17/20 07/17/20 17:02 17:02 17:02 WBC RBC Hgb Hct MCV MCH MCHC RDW Std Deviation RDW Coeff of [place] Plt Count MPV Immature Gran % (Auto) Neut % (Auto) Lymph % (Auto) [place] % (Auto) Eos % (Auto) Baso % (Auto) Absolute Neuts (auto) Absolute Lymphs (auto) Nucleated RBC % Differential Comment D-Dimer Quant (PE/DVT) Sodium Potassium Chloride Carbon Dioxide Anion Gap BUN Creatinine Estim Creat Clear Calc Est GFR (MDRD) Af Amer Est GFR (MDRD) Non-Af BUN/Creatinine Ratio Glucose Lactic Acid Calcium Magnesium 1.5 L Total Bilirubin 1.10 H Direct Bilirubin 0.66 H AST 27 ALT 22 Alkaline Phosphatase 66 Troponin I B-Natriuretic Peptide 42.6 Total Protein 7.4 Albumin 2.9 L Globulin 4.5 H Albumin/Globulin Ratio Procalcitonin 23.89 H Urine Color Urine Clarity Urine pH Ur Specific [place] Urine Protein Urine Glucose (UA) Urine Ketones Urine Occult Blood Urine Nitrite Urine Bilirubin Urine Urobilinogen Ur Leukocyte Esterase Urine RBC Urine WBC Ur Squamous Epith Cells Urine Bacteria Urine Mucus COVID-19 (YUMIKO) 07/17/20 07/17/20 07/17/20 17:40 18:50 18:50 WBC RBC Hgb Hct MCV MCH MCHC RDW Std Deviation RDW Coeff of [place] Plt Count MPV Immature Gran % (Auto) Neut % (Auto) Lymph % (Auto) [place] % (Auto) Eos % (Auto) Baso % (Auto) Absolute Neuts (auto) Absolute Lymphs (auto) Nucleated RBC % Differential Comment D-Dimer Quant (PE/DVT) Sodium Potassium Chloride Carbon Dioxide Anion Gap BUN Creatinine Estim Creat Clear Calc Est GFR (MDRD) Af Amer Est GFR (MDRD) Non-Af BUN/Creatinine Ratio Glucose Lactic Acid 2.2 H* Calcium Magnesium Total Bilirubin Direct Bilirubin AST ALT Alkaline Phosphatase Troponin I B-Natriuretic Peptide Total Protein Albumin Globulin Albumin/Globulin Ratio Procalcitonin Urine Color Yellow Urine Clarity Clear Urine pH 5.0 Ur Specific [place] 1.015 Urine Protein 30 H Urine Glucose (UA) Normal Urine Ketones 5 H Urine Occult Blood 10 H Urine Nitrite Negative Urine Bilirubin Negative Urine Urobilinogen Normal Ur Leukocyte Esterase 25 H Urine RBC 0 SEEN Urine WBC 0-5 SEEN Ur Squamous Epith Cells 5-10 SEEN Urine Bacteria 1+ Urine Mucus 0 SEEN COVID-19 (YUMIKO) Negative 07/17/20 07/18/20 07/18/20 23:59 07:05 07:05 WBC 4.5 RBC 3.68 L Hgb 12.3 Hct 34.4 L MCV 93.5 MCH 33.4 H MCHC 35.8 RDW Std Deviation 39.1 RDW Coeff of [place] 11.4 L Plt Count 163 MPV 10.3 Immature Gran % (Auto) 1.800 H Neut % (Auto) 83.7 H Lymph % (Auto) 5.6 L [place] % (Auto) 8.0 Eos % (Auto) 0.2 Baso % (Auto) 0.7 Absolute Neuts (auto) 3.8 Absolute Lymphs (auto) 0.25 L Nucleated RBC % 0 Differential Comment D-Dimer Quant (PE/DVT) Sodium 128 L Potassium 3.3 L Chloride 93 L Carbon Dioxide 24.0 Anion Gap 11 BUN 20 H Creatinine 0.51 L Estim Creat Clear Calc 106.88 Est GFR (MDRD) Af Amer 156 Est GFR (MDRD) Non-Af 129 BUN/Creatinine Ratio 39.1 H Glucose 82 Lactic Acid 2.4 H* Calcium 7.8 L Magnesium 2.1 Total Bilirubin 0.80 Direct Bilirubin AST 18 ALT 16 Alkaline Phosphatase 51 Troponin I B-Natriuretic Peptide Total Protein 5.2 L Albumin 2.2 L Globulin 3.0 Albumin/Globulin Ratio 0.7 L Procalcitonin Urine Color Urine Clarity Urine pH Ur Specific [place] Urine Protein Urine Glucose (UA) Urine Ketones Urine Occult Blood Urine Nitrite Urine Bilirubin Urine Urobilinogen Ur Leukocyte Esterase Urine RBC Urine WBC Ur Squamous Epith Cells Urine Bacteria Urine Mucus COVID-19 (YUMIKO) - Other Studies Radiology: [] reviewed Other Studies: [] Route of nutrition/ use of supplements: [] Nutritional Intake: [] IV Site: [] [place] Catheter: [] - Physical Exam General: Alert, Oriented x3, Cooperative, No apparent distress HEENT: Atraumatic, PERRLA, EOMI Neck: Supple, No Nodes Lungs: Rhonchi Cardiovascular: Regular rate, Regular Rhythm Abdomen: Soft, Non Tender, Non-Distended Extremities: No edema Skin: No rashes IV Site: Peripheral, without redness Musculoskeletal: No Tenderness to Palpation of Joints or Extremities Neurological: Cranial nerves II-XII grossly intact - Assessment/Plan Antibiotics: [] Assessment/Plan: [] Active and Suspected Problems (Last Updated 07/18/20 @ 09:[address] Isabel Parekh MD) Pneumonia (Acute) Suspected COVID-19 virus infection (Acute) Hypokalemia (Acute) Hyponatremia (Acute) s.pneumo CAP with (+) bcx - with vague symptoms, ? exposure history, and lymphopenia, hard to completely rule out covid as well even with a negative pcr. Will narrow abx to ceftriaxone. Will start dex due to sats less than 94%. D- dimer was high at 3.6, CT neg for PE. Sx started around 07/15. Increase lovenox to 40mg bid. Will follow, thank you.
--- NOTE | 2020-07-18 11:25 | CASEMGMT ---
ANIRUDH ANAYA ASSESSMENT COVID-19 test done 07/17 and was negative but remains in COVID precautions at this time. Dr Lang, ID, has been consulted. ANIRUDH ANAYA placed call to pt's room for initial transition planning/care coordination assessment. ANIRUDH ANAYA introduced self and role at [facility]. Pt voices understanding and consents to assessment at this time. Pt is A/O at this time and answers all questions appropriately. Care providers, pharmacy, and demographics verified/updated at this time. PCP: No PCP. Pt encouraged to get established with a PCP. Offered to provide list of local PCP's which she stated she appreciated. List of local PCP's given to Aminata OLEARY, to give to pt. Preferred Pharmacy: [facility] Retail Insurance: [employer] [facility] Prescription Benefit: Yes Living Will/HPOA: States does not have LW or HCPOA . Interested in more information. Educated patient that, if patient so chooses, can come back to [facility] and meet with a SW as an outpatient to complete health care advanced directives once she is out of isolation precautions. Patient expresses understanding. Information on advanced directives and Social Service rac card w/contact info given to Aminata OLEARY, to give to pt. LNOK: 2 sons: Daniel and Gary. Sister, Kriss. Brother, Sherrill Living Arrangements: Lives w/roommate in an apartment w/basement. Independent w/ADL's and IADL's. States her roommate has separate bedroom and she is able to self isolate once she returns home. They do share a bathroom, but have disinfectants/cleaning supplies. Recommended to clean bathroom or any shared space after each use. She voices understanding. They have masks and hand developer automatic. Brother can get groceries/medications/supplies as needed. Transportation: Brother or sister. DME: has the following DME: walker, shower chair. No home O2. Denies preference of DME co if qualifies for O2 @ d/c. Pt states is interested in medical alert button. Aminata OLEARY, given info sheet on local companies that provide these to give to pt. She was made aware. She states she does not think she would be able to afford this. ANIRUDH ANAYA encouraged pt to contact [facility], as they may be able to provide/assist her with getting this. She voices appreciation. HHC/SNF: No history of either. She states Felipe was wanting to send a nurse out to check on her periodically, but she was not interested in that. She states she falls once in a blue smith. RN JACLYN made pt aware of HHC at this time as well, but declines this at this time. She was made aware, if in the future, she decides she would like HHC or OP therapy (once out of quarantine), to contact her PCP (once she gets established with one) to discuss options of HHC or OP therapy. She voices understanding. Pt wishes to return home and states has no concerns with going home at time of discharge. Pt voices no further concerns/needs at this time. Advised pt to ask for CM if any further questions/concerns/needs arise. Voices understanding. PLAN: Home. May need home oxygen testing completed prior to d/c. Denies preference of DME company. PT/OT evals pending. CM to follow for any home oxygen needs or further discharge planning needs. Jackie LOWEN RN JACLYN
--- NOTE | 2020-07-18 16:03 | PCM.NTREPORT ---
Nutrition Therapy Report - History Nutrition Services has been consulted to:: Manage nutrient details of diet order Current diet / nutrition support order:: Regular; Ensure Enlive 120 ml 4x/day w/ medpass. - Anthropometric Measurements Height:: 5 ft 7 in Weight:: 59.194 kg Body Mass Index (BMI):: 20.4 - Relevant Labs Relevant Labs:: RBC 3.68 M/mm3 (4.2-5.4) L 07/18/20 07:05 Hct 34.4 % (37-47) L 07/18/20 07:05 MCH 33.4 pg (27.0-32.0) H 07/18/20 07:05 MCHC 36.8 g/dL (32-36) H 07/17/20 17:02 RDW Coeff of [place] 11.4 % (11.6-14.6) L 07/18/20 07:05 Immature Gran % (Auto) 1.800 % (0.0-0.9) H 07/18/20 07:05 Neut % (Auto) 83.7 % (47-70) H 07/18/20 07:05 Lymph % (Auto) 5.6 % (19-41) L 07/18/20 07:05 Absolute Neuts (auto) 8.8 X10^3/uL (2.0-7.7) H 07/17/20 17:02 Absolute Lymphs (auto) 0.25 X10^3/uL (0.83-4.51) L 07/18/20 07:05 D-Dimer Quant (PE/DVT) 3.65 FEU/ug/m (0.27-0.49) H* 07/17/20 17:02 Sodium 128 mmol/L (136-145) L 07/18/20 07:05 Potassium 3.3 mmol/L (3.5-5.1) L 07/18/20 07:05 Chloride 93 mmol/L (98-107) L 07/18/20 07:05 BUN 20 mg/dL (7-18) H 07/18/20 07:05 Creatinine 0.51 mg/dL (0.55-1.02) L 07/18/20 07:05 BUN/Creatinine Ratio 39.1 RATIO (10-20) H 07/18/20 07:05 Lactic Acid 2.4 mmol/L (0.4-1.9) H* 07/17/20 23:59 Calcium 7.8 mg/dL (8.5-10.1) L 07/18/20 07:05 Magnesium 1.5 mg/dL (1.6-2.6) L 07/17/20 17:02 Total Bilirubin 1.10 mg/dL (0.20-1.00) H 07/17/20 17:02 Direct Bilirubin 0.66 mg/dL (0.00-0.30) H 07/17/20 17:02 Total Protein 5.2 g/dL (6.4-8.2) L 07/18/20 07:05 Albumin 2.2 g/dL (3.2-5.0) L 07/18/20 07:05 Globulin 4.5 g/dL (2.2-4.2) H 07/17/20 17:02 Albumin/Globulin Ratio 0.7 RATIO (0.9-2.4) L 07/18/20 07:05 Procalcitonin 23.89 ng/mL (0.00-0.09) H 07/17/20 17:02 - Assessment Food / Nutrition-Related History:: Pt in [facility]- spoke w/ pt via phone. Reports poor intake x 1 year d/t not feeling well. States decrease intake consuming 1 meal per day vs typically 3 meals/day x 1year. Pt states unintentional wt loss w/ wt 300# x 1 year ago, unsure of current body weight notes drop in clothing size from 20-24 pant size to now 10-14 pant size. CBW 130.5#- wt loss 169.5#/56% x 1 year (severe). Notes increased stressed d/t roomate who drinks ETOH a lot. Reports good intake at this time - consuming 75% of meals served. Notes has difficulty chewing meat d/t teeth pulled and has dentures-does not use dentures as causes gaging w/ eating--agreeable to soft foods added to diet order. Notes diarrhea yesterday, no BM since admin. - Nutrition Diagnosis Problem / Etiology / Signs & Symptoms (PES):: Severe chronic malnutrition RT inadequate oral intake AEB pt reports consuming </= 75% energy intake compared to estimated energy needs x 1 year, wt loss 169.5#/56% x 1 year, drop in clothing size from 20-24 pant size to now 10-14 pant size. Evidence of Malnutrition Exists:: Yes Severe PCM:: Chronic Illness - Nutrition Intervention Nutrition Prescription:: [id number] calories, 50-60 grams protein - Food / Nutrient Delivery Interventions Nutrition support ordered as / adjusted to:: Continue Regular diet- will provide soft/bite sized foods per pt request d/t chewing difficulty. Will provide ensure enlive 120 ml w/ meals and ensure pudding w/ L&D for additional irving/pro if consumed. Nutrition education provided?: No - MNT Monitoring Further MNT monitoring and evaluation required?: Yes MNT Follow-up in:: 3-5 days
[2020-07-18] MEDS: guaiFENesin 10 ML UDC (200MG/10ML) 20 ML PO (20:15)
[2020-07-18] MEDS: Nicotine Polacrilex 2 MG GUM PO (22:47)
[2020-07-18] MEDS: guaiFENesin 600 MG Tablet PO (22:58)
[2020-07-19 04:00] VITALS: PULSE 101
[2020-07-19 04:01] VITALS: BP 149/98; PULSE 101; RESP 18; TEMP 36.4; O2SAT 95
[2020-07-19 05:52] LABS: Absolute Lymphocyte Count 0.54 X10^3/uL (0.83-4.51); Absolute Neutrophil Count 6.9 X10^3/uL (2.0-7.7); Basophil# 0.04 X10^3/uL; Basophil% 0.5 % (0-1); Hemoglobin 12.8 g/dL (12.0-15.0); Lymphocyte # 0.54 X10^3/ul (4.0); Lymphocyte % 6.2 % (19-41); Mean Corp Hgb Conc 35.6 g/dL (32-36); Mean Corpuscular Hgb 33.2 pg (27.0-32.0); Mean Corpuscular Volume 93.5 fL (81-99); Mean Platelet Vol. 10.3 fl (6.2-12.0); Monocyte# 1.09 X10^3/uL; Monocyte% 12.5 % (0-10); NRBC Flagged by Analyzer 0 % (0-5); Neutrophil # 6.93 X10^3/uL (2.7-7.7); Neutrophil % 79.7 % (47-70); POSITIVE DIFFERENTIAL YES; Platelet Count 180 K/mm3 (150-450); RBC Distribution Width CV 11.6 % (11.6-14.6); RBC Distribution Width SD 39.3 fl (35.1-43.9); Red Blood Count 3.85 M/mm3 (4.2-5.4); White Blood Count 8.7 K/mm3 (4.4-11.0)
[2020-07-19 06:15] LABS: Anion Gap 11 (5-15); BUN 12 mg/dL (7-18); BUN/Creat Ratio 35.8 RATIO (10-20); Calcium,Total 8.2 mg/dL (8.5-10.1); Chloride 94 mmol/L (98-107); Creatinine, Serum 0.34 mg/dL (0.55-1.02); EST Glomerular Filtration Rate 210 mL/min (>60); Est Glom Filt Rate - Afr Amer 255 mL/min (>60); Glucose 99 mg/dL (74-106); Potassium 2.8 mmol/L (3.5-5.1); Sodium Level 130 mmol/L (136-145)
[2020-07-19 06:21] LABS: Differential Indicated SCAN CRITERIA MET
[2020-07-19 06:27] LABS: Differential Comment SCANNED
[2020-07-19] MEDS: Enoxaparin 40 MG/0.4 ML Syringe SC ×2 (09:35→23:21)
[2020-07-19] MEDS: dexAMETHasone 4 MG Tablet 6 MG PO (09:35)
[2020-07-19] MEDS: Umeclidinium Bromide Inhaler 1 PUFF IH (09:36)
[2020-07-19 09:44] VITALS: BP 116/69; PULSE 115; RESP 18; TEMP 36.5; O2SAT 94
[2020-07-19] MEDS: Senna/Docusate Sodium 1 Tablet 2 TABLET PO (09:51)
--- NOTE | 2020-07-19 10:52 | PCM.PROGNOTE ---
Patient Problems: Active and Suspected Problems (Last Updated 07/18/20 @ 09:[address] Isabel Parekh MD) Pneumonia (Acute) Suspected COVID-19 virus infection (Acute) Hypokalemia (Acute) Hyponatremia (Acute) Subjective: Chief complaint: Follow-up after admission for right lower lobe community-acquired pneumonia, severe sepsis, suspected COVID-19 pneumonia. Patient seen and examined. No acute events overnight. Today, she is feeling better, shortness of breath improved. She complains of restless legs. She has been afebrile, still slightly tachycardic, blood pressure stable, pulse ox is 94% on room air. - Physical Exam Vitals/I&O's: Vital Signs Temp Pulse Resp BP Pulse Ox 97.7 F L 115 H 18 116/69 94 07/19/20 09:44 07/19/20 09:44 07/19/20 09:44 07/19/20 09:44 07/19/20 09:44 Oxygen Delivery Method Room Air Weight: 128 lb 8.472 oz Body Mass Index (BMI) 20.4 Intake and Output for Last 24 Hours 07/17/20 07/18/20 07/19/20 23:59 23:59 23:59 Intake Total 2305 / 2305 2819 / 2819 50 / 50 Balance 2305 / 2305 2819 / 2819 50 / 50 General: Alert, Oriented x3, Cooperative, No apparent distress HEENT: Atraumatic, PERRLA, EOMI, Normocephalic Oral: Moist Mucosa, No Gingival or Mucosal Lesions/ Ulcerations Neck: Supple, No JVD, Negative Carotid Bruits, Trachea Midline, Thyroid Normal Size and Texture Lungs: No wheeze, No rales, Diminished, Rhonchi, - - Decreased breath sounds on the right base, scattered rhonchi. Cardiovascular: Regular rate, Regular Rhythm, Normal S1, Normal S2, No Ectopic Activity, PMI Normal, Tachycardic Abdomen: Soft, Non Tender, Non-Distended, No Hepato-splenomegaly Extremities: No clubbing, No cyanosis, No edema Skin: No rashes, No breakdown Lymphatic: No Cervical, Supraclavicular, or Inguinal Adenopathy Neurological: Cranial nerves II-XII grossly intact, Neuro grossly intact Psych/Mental Status: Normal Affect, Appropriate, Alert and oriented to time, place, person, mood and affect Microbiology Past 72 Hours 07/17/20 18:50 Urine, Clean Catch Urine Culture - Final Mixed Gram Positive Organisms 07/17/20 18:50 Blood Culture (Wb) - Anticubital Left Blood Culture - Final 07/17/20 18:50 Blood Culture (Wb) - Anticubital Right Bacteria Detection (PCR) - Final Streptococcus pneumoniae 07/17/20 18:50 Blood Culture (Wb) - Anticubital Right Blood Culture - Preliminary Streptococcus pneumoniae 07/18/20 Unknown Urine, Clean Catch Streptococcus pneumoniae Antigen (M - Final Streptococcus pneumonia Ag 07/18/20 Unknown Urine, Clean Catch Legionella Antigen - Final Laboratory Results 07/19/20 05:26: WBC 8.7, RBC 3.85 L, Hgb 12.8, Hct 36.0 L, MCV 93.5, MCH 33.2 H, MCHC 35.6, RDW Std Deviation 39.3, RDW Coeff of [place] 11.6, Plt Count 180, MPV 10.3, Immature Gran % (Auto) 1.100 H, Neut % (Auto) 79.7 H, Lymph % (Auto) 6.2 L, [place] % (Auto) 12.5 H, Eos % (Auto) 0.0, Baso % (Auto) 0.5, Absolute Neuts (auto) 6.9, Absolute Lymphs (auto) 0.54 L, Nucleated RBC % 0, Differential Comment SCANNED 07/19/20 05:26: Sodium 130 L, Potassium 2.8 L, Chloride 94 L, Carbon Dioxide 25.0, Anion Gap 11, BUN 12, Creatinine 0.34 L, Estim Creat Clear Calc 157.90, Est GFR (MDRD) Af Amer 255, Est GFR (MDRD) Non-Af 210, BUN/Creatinine Ratio 35.8 H, Glucose 99, Calcium 8.2 L Microbiology 07/17/20 18:50 Urine, Clean Catch Urine Culture - Final Mixed Gram Positive Organisms 07/17/20 18:50 Blood Culture (Wb) - Anticubital Left Blood Culture - Final 07/17/20 18:50 Blood Culture (Wb) - Anticubital Right Bacteria Detection (PCR) - Final Streptococcus pneumoniae 07/17/20 18:50 Blood Culture (Wb) - Anticubital Right Blood Culture - Preliminary Streptococcus pneumoniae 07/18/20 Unknown Urine, Clean Catch Streptococcus pneumoniae Antigen (M - Final Streptococcus pneumonia Ag 07/18/20 Unknown Urine, Clean Catch Legionella Antigen - Final Current Medications Acetaminophen (Acetaminophen 325 Mg Tablet) 650 mg PO Q6H PRN PRN PRN Reason: Pain Score 1-10/Temp > 100.7 F Last Admin: 07/18/20 22:57 Dose: 650 mg Documented by: Al Hydroxide/Mg Hydroxide (Mag Hydrox/Al Hydrox/Simeth 30 Ml Udc) 30 ml PO Q6H PRN PRN PRN Reason: Gastric Burning Albuterol Sulfate (Albuterol Sulfate 18 Gm Inhaler (200 Puffs)) 1 puff IH Q4HWA.RT AFIA Dexamethasone (Dexamethasone 4 Mg Tablet) 6 mg PO DAILY [facility] Stop: 07/27/20 10:01 Last Admin: 07/19/20 09:35 Dose: 6 mg Documented by: Enoxaparin Sodium (Enoxaparin 40 Mg/0.4 Ml Syringe) 40 mg SC BID [facility] Last Admin: 07/19/20 09:35 Dose: 40 mg Documented by: Guaifenesin (Guaifenesin 600 Mg Tablet) 600 mg PO BID PRN PRN PRN Reason: congestion Last Admin: 07/18/20 22:58 Dose: 600 mg Documented by: Guaifenesin (Guaifenesin 10 Ml Udc (200mg/10ml)) 20 ml PO Q4H PRN PRN PRN Reason: COUGH Last Admin: 07/18/20 20:15 Dose: 20 ml Documented by: Sodium Chloride () 250 mls @ 15 mls/hr IV .[id number] PRN PRN Reason: Saline Flush Sodium Chloride () 250 mls @ 15 mls/hr IV .[id number] PRN PRN Reason: Additional IVPB Infusion Ceftriaxone Sodium 2 gm/ (Sodium Chloride) 50 mls @ 100 mls/hr IV Q24 [facility] Last Infusion: 07/19/20 10:42 Dose: Infused Documented by: Miscellaneous Information (Inhaler, Assist Devices 1 Each Spacer) 1 each INHALATION PRN PRN PRN Reason: WITH ALBUTEROL INHALER Morphine Sulfate (Morphine 2 Mg/Ml Syringe) 2 mg IV Q3H PRN PRN PRN Reason: Pain Score 6-10 Last Admin: 07/17/20 23:46 Dose: 2 mg Documented by: Nicotine (Nicotine 21 Mg Patch) 21 mg TD DAILY [facility] Last Admin: 07/19/20 09:35 Dose: 21 mg Documented by: Nicotine Polacrilex (Nicotine Polacrilex 2 Mg Gum) 2 mg PO Q2H PRN PRN PRN Reason: Nicotine Craving Last Admin: 07/18/20 22:47 Dose: 2 mg Documented by: Ondansetron HCl (Ondansetron 4 Mg/2 Ml Vial) 4 mg IV Q8H PRN PRN PRN Reason: NAUSEA/VOMITING Potassium Chloride (Potassium Chloride 20 Meq Tablet) 40 meq PO BIDCM [facility] Last Admin: 07/19/20 09:36 Dose: 40 meq Documented by: Pramipexole Dihydrochloride (Pramipexole Di-Hcl 0.125 Mg Tablet) 0.125 mg PO TID [facility] Senna/Docusate Sodium (Senna/Docusate Sodium 1 Tablet) 2 tablet PO BID PRN PRN PRN Reason: Constipation Last Admin: 07/19/20 09:51 Dose: 2 tablet Documented by: Sodium Chloride (0.9% Saline Lock 10 Ml Syringe) 10 - 40 ml IV UD PRN PRN Reason: SALINE FLUSH Last Admin: 07/18/20 03:33 Dose: 10 ml Documented by: Throat Lozenges (Benzocaine/Menthol 1 Lozenge) 1 lozenge MUCOUS MEM Q2H PRN PRN PRN Reason: COUGH IF ROBITUSSIN INEFFECTIV Last Admin: 07/18/20 22:58 Dose: 1 lozenge Documented by: Umeclidinium [place] (Umeclidinium [place] Inhaler) 1 puff IH DAILY [facility] Last Admin: 07/19/20 09:36 Dose: 1 puff Documented by: Medical Necessity - Tobacco Use Smoking Status: Current every day smoker Tobacco Use: Cigarettes Assessment/Plan All Active Problems (Last Updated 07/18/20 @ 09:[address] Isabel Parekh MD) Pneumonia (Acute) Suspected COVID-19 virus infection (Acute) Hypokalemia (Acute) Hyponatremia (Acute) This is a 64 years old female patient presented to the emergency room because of shortness of breath and chest pain, found to have right basilar infiltrate on chest x-ray, right lower lobe infiltrate and mild patchy groundglass opacities on the left lung, tested negative for COVID-19 by PCR and she was admitted for community-acquired pneumonia, severe sepsis as well as suspected COVID-19 pneumonia. #1 right lower lobe community-acquired streptococcal pneumonia/severe sepsis: She is on IV Rocephin. She has been afebrile, no leukocytosis. Pneumococcal antigen was positive. Blood culture revealed strep pneumoniae. Urine cultures showed mixed growth. Plan to continue same treatment, start patient on Requip 3 times daily for restless legs. #2 streptococcal bacteremia: Probable source is the pneumonia. Currently, she is on IV Rocephin. Vitals are stable except tachycardia as above. Plan to monitor. #2 suspected COVID-19 pneumonia/high suspicion: COVID-19 PCR was negative. CTA chest revealed a right lower lobe consolidation in addition to groundglass opacities in the left lung. She is on p.o. Decadron. She is on Lovenox twice daily. Infectious disease consulted, appreciate recommendations. She remained on room air, pulse ox is 94%. Plan to continue same treatment. #3 hypokalemia/hyponatremia/hypomagnesemia: Today sodium is 130, improving. Potassium is still low at 2.8. Magnesium was replaced and corrected. Plan to start patient on p.o. potassium supplement with K. Dur 40 mEq twice daily. #4 suspected COPD: Patient does smoke, uses albuterol inhaler as needed. She mentioned that she never been diagnosed with COPD officially. Currently, she is on albuterol inhaler as needed, pulse ox is 94% on room air. #5 tobacco abuse: Continue NicoDerm patch. #6 DVT prophylaxis: Subcu Lovenox twice daily. This note was generated with [employer] dictation software. It may contain incorrect words, spelling, and punctuation that were not noted in checking the note before signing. Inpatient E&M: 88196 Subs Hosp L2
[2020-07-19 14:05] VITALS: O2SAT 95
--- NOTE | 2020-07-19 15:02 | PCM.PN.ID ---
Patient Problems: Active and Suspected Problems (Last Updated 07/18/20 @ 09:[address] Isabel Parekh MD) Pneumonia (Acute) Suspected COVID-19 virus infection (Acute) Hypokalemia (Acute) Hyponatremia (Acute) Subjective: Feeling better, cough improving, some sputum, no n/v/d. - Physical Exam Vitals/I&O's: Vital Signs Temp Pulse Resp BP Pulse Ox 97.7 F L 115 H 18 116/69 94 07/19/20 09:44 07/19/20 09:44 07/19/20 09:44 07/19/20 09:44 07/19/20 09:44 Oxygen Delivery Method Room Air Weight: 58.3 kg Body Mass Index (BMI) 20.4 Intake and Output for Last 24 Hours 07/17/20 07/18/20 07/19/20 23:59 23:59 23:59 Intake Total 2305 / 2305 2819 / 2819 50 / 50 Balance 2305 / 2305 2819 / 2819 50 / 50 General: Alert, Cooperative, No apparent distress Lungs: Rhonchi Cardiovascular: Regular rate, Regular Rhythm Abdomen: Soft, Non Tender, Non-Distended Skin: No rashes Microbiology Past 72 Hours 07/17/20 18:50 Urine, Clean Catch Urine Culture - Final Mixed Gram Positive Organisms 07/17/20 18:50 Blood Culture (Wb) - Anticubital Left Blood Culture - Final 07/17/20 18:50 Blood Culture (Wb) - Anticubital Right Bacteria Detection (PCR) - Final Streptococcus pneumoniae 07/17/20 18:50 Blood Culture (Wb) - Anticubital Right Blood Culture - Preliminary Streptococcus pneumoniae 07/18/20 Unknown Urine, Clean Catch Streptococcus pneumoniae Antigen (M - Final Streptococcus pneumonia Ag 07/18/20 Unknown Urine, Clean Catch Legionella Antigen - Final Laboratory Results 07/19/20 05:26: WBC 8.7, RBC 3.85 L, Hgb 12.8, Hct 36.0 L, MCV 93.5, MCH 33.2 H, MCHC 35.6, RDW Std Deviation 39.3, RDW Coeff of [place] 11.6, Plt Count 180, MPV 10.3, Immature Gran % (Auto) 1.100 H, Neut % (Auto) 79.7 H, Lymph % (Auto) 6.2 L, [place] % (Auto) 12.5 H, Eos % (Auto) 0.0, Baso % (Auto) 0.5, Absolute Neuts (auto) 6.9, Absolute Lymphs (auto) 0.54 L, Nucleated RBC % 0, Differential Comment SCANNED 07/19/20 05:26: Sodium 130 L, Potassium 2.8 L, Chloride 94 L, Carbon Dioxide 25.0, Anion Gap 11, BUN 12, Creatinine 0.34 L, Estim Creat Clear Calc 157.90, Est GFR (MDRD) Af Amer 255, Est GFR (MDRD) Non-Af 210, BUN/Creatinine Ratio 35.8 H, Glucose 99, Calcium 8.2 L Current Medications Acetaminophen (Acetaminophen 325 Mg Tablet) 650 mg PO Q6H PRN PRN PRN Reason: Pain Score 1-10/Temp > 100.7 F Last Admin: 07/18/20 22:57 Dose: 650 mg Documented by: Al Hydroxide/Mg Hydroxide (Mag Hydrox/Al Hydrox/Simeth 30 Ml Udc) 30 ml PO Q6H PRN PRN PRN Reason: Gastric Burning Albuterol Sulfate (Albuterol Sulfate 18 Gm Inhaler (200 Puffs)) 1 puff IH Q4HWA.RT AFIA Dexamethasone (Dexamethasone 4 Mg Tablet) 6 mg PO DAILY [facility] Stop: 07/27/20 10:01 Last Admin: 07/19/20 09:35 Dose: 6 mg Documented by: Enoxaparin Sodium (Enoxaparin 40 Mg/0.4 Ml Syringe) 40 mg SC BID [facility] Last Admin: 07/19/20 09:35 Dose: 40 mg Documented by: Guaifenesin (Guaifenesin 600 Mg Tablet) 600 mg PO BID PRN PRN PRN Reason: congestion Last Admin: 07/18/20 22:58 Dose: 600 mg Documented by: Guaifenesin (Guaifenesin 10 Ml Udc (200mg/10ml)) 20 ml PO Q4H PRN PRN PRN Reason: COUGH Last Admin: 07/18/20 20:15 Dose: 20 ml Documented by: Sodium Chloride () 250 mls @ 15 mls/hr IV .[id number] PRN PRN Reason: Saline Flush Sodium Chloride () 250 mls @ 15 mls/hr IV .[id number] PRN PRN Reason: Additional IVPB Infusion Ceftriaxone Sodium 2 gm/ (Sodium Chloride) 50 mls @ 100 mls/hr IV Q24 [facility] Last Infusion: 07/19/20 10:42 Dose: Infused Documented by: Miscellaneous Information (Inhaler, Assist Devices 1 Each Spacer) 1 each INHALATION PRN PRN PRN Reason: WITH ALBUTEROL INHALER Morphine Sulfate (Morphine 2 Mg/Ml Syringe) 2 mg IV Q3H PRN PRN PRN Reason: Pain Score 6-10 Last Admin: 07/17/20 23:46 Dose: 2 mg Documented by: Nicotine (Nicotine 21 Mg Patch) 21 mg TD DAILY [facility] Last Admin: 07/19/20 09:35 Dose: 21 mg Documented by: Nicotine Polacrilex (Nicotine Polacrilex 2 Mg Gum) 2 mg PO Q2H PRN PRN PRN Reason: Nicotine Craving Last Admin: 07/18/20 22:47 Dose: 2 mg Documented by: Ondansetron HCl (Ondansetron 4 Mg/2 Ml Vial) 4 mg IV Q8H PRN PRN PRN Reason: NAUSEA/VOMITING Potassium Chloride (Potassium Chloride 20 Meq Tablet) 40 meq PO BIDCM [facility] Last Admin: 07/19/20 09:36 Dose: 40 meq Documented by: Pramipexole Dihydrochloride (Pramipexole Di-Hcl 0.125 Mg Tablet) 0.125 mg PO TID [facility] Senna/Docusate Sodium (Senna/Docusate Sodium 1 Tablet) 2 tablet PO BID PRN PRN PRN Reason: Constipation Last Admin: 07/19/20 09:51 Dose: 2 tablet Documented by: Sodium Chloride (0.9% Saline Lock 10 Ml Syringe) 10 - 40 ml IV UD PRN PRN Reason: SALINE FLUSH Last Admin: 07/18/20 03:33 Dose: 10 ml Documented by: Throat Lozenges (Benzocaine/Menthol 1 Lozenge) 1 lozenge MUCOUS MEM Q2H PRN PRN PRN Reason: COUGH IF ROBITUSSIN INEFFECTIV Last Admin: 07/18/20 22:58 Dose: 1 lozenge Documented by: Umeclidinium [place] (Umeclidinium [place] Inhaler) 1 puff IH DAILY [facility] Last Admin: 07/19/20 09:36 Dose: 1 puff Documented by: Medical Necessity - Tobacco Use Smoking Status: Current every day smoker Tobacco Use: Cigarettes Route of nutrition/ use of supplements: [] Nutritional Intake: [] IV Site: [] [place] Catheter: [] - Assessment/Plan Antibiotics: [] Assessment/Plan: [] Active and Suspected Problems (Last Updated 07/18/20 @ 09:[address] Isabel Parekh MD) Pneumonia (Acute) Suspected COVID-19 virus infection (Acute) Hypokalemia (Acute) Hyponatremia (Acute) s.pneumo CAP with (+) bcx - with vague symptoms, ? exposure history, and lymphopenia, hard to completely rule out covid as well even with a negative pcr. Cont ceftriaxone, dex. D-dimer was high at 3.6, CT neg for PE. Sx started around 07/15. On lovenox 40mg bid. Plan for discharge will be 10 days total of abx, can go home on po once susceptibilities are back. Ok to stop dex at discharge. Will follow
[2020-07-19] MEDS: Pramipexole Di-HCl 0.125 MG Tablet PO ×2 (15:52→23:20)
[2020-07-19] MEDS: guaiFENesin 10 ML UDC (200MG/10ML) 20 ML PO (15:54)
[2020-07-19] MEDS: BENZOCAINE/MENTHOL 1 LOZENGE MUCOUS MEM (15:54)
[2020-07-19 15:56] VITALS: BP 149/95; PULSE 115; RESP 18; TEMP 36.7; O2SAT 96
[2020-07-19] MEDS: Mag Hydrox/Al Hydrox/Simeth 30 ML UDC PO ×2 (17:33→23:22)
[2020-07-19 20:52] VITALS: BP 141/95; PULSE 97; RESP 18; TEMP 36.9; O2SAT 95
[2020-07-20] MEDS: guaiFENesin 10 ML UDC (200MG/10ML) 20 ML PO ×2 (00:11→05:49)
[2020-07-20 03:00] VITALS: BP 158/108; PULSE 97; RESP 17; TEMP 36.6; O2SAT 93
[2020-07-20] MEDS: Pramipexole Di-HCl 0.125 MG Tablet PO (05:49)
[2020-07-20] MEDS: BENZOCAINE/MENTHOL 1 LOZENGE MUCOUS MEM (05:49)
[2020-07-20 06:38] LABS: Anion Gap 8 (5-15); BUN 19 mg/dL (7-18); BUN/Creat Ratio 44.9 RATIO (10-20); Calcium,Total 8.6 mg/dL (8.5-10.1); Chloride 96 mmol/L (98-107); Creatinine, Serum 0.42 mg/dL (0.55-1.02); EST Glomerular Filtration Rate 161 mL/min (>60); Est Glom Filt Rate - Afr Amer 195 mL/min (>60); Estimated Creatinine Clearance 128.92 ml/min; Glucose 89 mg/dL (74-106); Potassium 3.5 mmol/L (3.5-5.1); Sodium Level 134 mmol/L (136-145)
[2020-07-20] MEDS: Enoxaparin 40 MG/0.4 ML Syringe SC (08:48)
[2020-07-20] MEDS: dexAMETHasone 4 MG Tablet 6 MG PO (08:49)
[2020-07-20] MEDS: Umeclidinium Bromide Inhaler 1 PUFF IH (08:52)
[2020-07-20 09:00] VITALS: BP 150/100; PULSE 90; RESP 18; TEMP 36.7; O2SAT 95
--- NOTE | 2020-07-20 10:20 | DCINST_ITS ---
- Discharge Diagnoses Current Active Problems: Current Active and Chronic Problems (Last Updated 07/18/20 @ 09:[address] Isabel Parekh MD) Pneumonia (Acute) Suspected COVID-19 virus infection (Acute) Hypokalemia (Acute) Hyponatremia (Acute) You will use the following diet at home:: Regular Your food should be the consistency of: Regular Discharge Activity: Return to Normal Activity Weight Bearing Status: Weight bearing as tolerated Call your doctor if you observe: Fever of 101 or Higher, Shortness of breath, Dizziness, Fainting spells, Swelling in the ankles, Chest pain, Increased palpitations (irregular heartbeat), Calf discomfort Allergies/Adverse Reactions: Allergies No Known Allergies Allergy (Verified 07/17/20 17:03) Medications to take at Discharge albuterol sulfate 90 mcg/actuation breath activated powder inhaler 1 inh INHALATION Q6H PRN #1 ea 11/24/18 guaifenesin 600 mg tablet, extended release 12 hr 600 mg PO BID PRN #60 tab 11/24/18 Cephalexin [Keflex] 500 mg PO Q8 #24 cap 07/20/20 Oxybutynin [Ditropan] 5 mg PO BID #30 tab 07/20/20 Pramipexole Di-HCl [Mirapex] 0.5 mg PO QHS #30 tab 07/20/20 The following prescriptions were given: Oxybutynin [Ditropan] 5 mg PO BID #30 tab Transmission Status: Pending to [facility] Cephalexin [Keflex] 500 mg PO Q8 #24 cap Transmission Status: Pending to [facility] Pramipexole Di-HCl [Mirapex] 0.5 mg PO QHS #30 tab Transmission Status: Pending to [facility] Primary Care Physician: Mario Magana MD [STAFF PHYSICIAN] - Please follow up with your Primary Care Physician in: 1 WEEK. Test Results: Test results from this visit will be discussed in further detail at your follow- up appointment, if applicable.
--- NOTE | 2020-07-20 12:30 | PCM.DC.SUM ---
Discharge Date and Diagnosis - Problem List Patient Problems: Active and Suspected Problems (Last Updated 07/18/20 @ 09:[address] Isabel Parekh MD) Pneumonia (Acute) Suspected COVID-19 virus infection (Acute) Hypokalemia (Acute) Hyponatremia (Acute) Date of Admission: 07/17/20 Date of Discharge: 07/20/20 - Primary Discharge Diagnosis Acute Problems: Active Problems (Last Updated 07/18/20 @ 09:[address] Isabel Parekh MD) #1 right lower lobe community-acquired Streptococcus pneumonia/severe sepsis. #2 streptococcal bacteremia. #3 hypokalemia/hyponatremia/hypomagnesemia. #4 suspected COVID-19 pneumonia. - Secondary Discharge Diagnosis Chronic Problems: Chronic Problems (Last Updated 07/18/20 @ 09:[address] Isabel Parekh MD) Unintentional weight loss (Chronic) Vitamin deficiency (Chronic) Arthritis (Chronic) Hospital Course and Treatment Imaging Results: Clinical Impression(s) from Imaging Studies Chest X-Ray 07/17/20 17:28 IMPRESSION: Right basilar infiltrate. Electronically Signed: Luis Leiva DO at 17:50 EST Tel [phone], Service support , Chest CTA 07/17/20 18:55 IMPRESSION: No demonstrated pulmonary embolism or arterial dissection. There is a right lower lobe infiltrate/consolidation. Mild patchy groundglass densities in the left lung. Electronically Signed: Luis Leiva DO at 20:00 EST Tel [phone], Service support , Dr. Lang, infectious disease. Operations: None Procedures: None Summary of Care Provided: Patient seen and examined on the day of discharge and appeared to be stable to be discharged home. She is feeling better, has been off oxygen, afebrile. Her vital signs were stable. This is a 64 years old female patient presented to the emergency room because of shortness of breath and chest pain, found to have right basilar infiltrate on chest x-ray, right lower lobe infiltrate and mild patchy groundglass opacities on the left lung, tested negative for COVID-19 by PCR and she was admitted for community-acquired pneumonia, severe sepsis as well as suspected COVID-19 pneumonia. #1 right lower lobe community-acquired streptococcal pneumonia/severe sepsis: Treated with IV Rocephin and Zithromax. Pneumococcal antigen was positive. Blood culture revealed strep pneumoniae. Urine cultures showed mixed growth. She had no leukocytosis. Infectious disease consulted and recommended to discontinue Zithromax and keep patient already on Rocephin. Patient discharged home on Keflex 3 times daily to complete total of 10 days of treatment. #2 streptococcal bacteremia: Probable source is the pneumonia. Treated with IV Rocephin. Remained afebrile for more than 24 hours, no leukocytosis. Discharged on Keflex 3 times daily as above. #2 suspected COVID-19 pneumonia/high suspicion: COVID-19 PCR was negative. CTA chest revealed a right lower lobe consolidation in addition to groundglass opacities in the left lung. Treated with p.o. Decadron and subcu Lovenox twice daily. Infectious disease consulted and recommended to continue Decadron, Decadron can be discontinued upon discharge. Patient did not require oxygen and she remained on room air. No treatment given upon discharge. #3 hypokalemia/hyponatremia/hypomagnesemia: Her electrolytes was replaced and corrected appropriately. #4 suspected COPD: Remained on room air, no oxygen required upon discharge, continued on albuterol inhaler. Patient discharged home in a stable condition, discharged on Keflex 500 mg p.o. 3 times daily to complete total of 10 days of treatment, started on Ditropan for urine incontinence and Mirapex for restless legs, continued on her previous medications, recommended follow-up with PCP in 1 week. This note was generated with [employer] software. It may contain incorrect words, spelling, and punctuation that were not noted in checking the note before signing. Patient Problems: Active and Suspected Problems (Last Updated 07/18/20 @ 09:[address] Isabel Parekh MD) Pneumonia (Acute) Suspected COVID-19 virus infection (Acute) Hypokalemia (Acute) Hyponatremia (Acute) - Physical Exam Vitals/I&O's: Vital Signs Temp Pulse Resp BP Pulse Ox 98.1 F 90 18 150/100 H 95 07/20/20 09:00 07/20/20 09:00 07/20/20 09:00 07/20/20 09:00 07/20/20 09:00 Oxygen Delivery Method Room Air Weight: 129 lb 10.109 oz Body Mass Index (BMI) 20.4 Intake and Output for Last 24 Hours 07/18/20 07/19/20 07/20/20 23:59 23:59 23:59 Intake Total 2819 / 2819 50 / 350 650 / 650 Balance 2819 / 2819 50 / 350 650 / 650 General: Alert, Oriented x3, Cooperative, No apparent distress HEENT: Atraumatic, PERRLA, EOMI Oral: Moist Mucosa, No Gingival or Mucosal Lesions/ Ulcerations Neck: Supple, No JVD, Negative Carotid Bruits, Trachea Midline, Thyroid Normal Size and Texture Lungs: Clear to auscultation, No rhonchi, No wheeze, No rales, Diminished Cardiovascular: Regular rate, Regular Rhythm, Normal S1, Normal S2, PMI Normal Abdomen: Bowel Sounds Present, Soft, Non Tender, Non-Distended, No Hepato-splenomegaly Extremities: No clubbing, No cyanosis, No edema Skin: No rashes, No breakdown Lymphatic: No Cervical, Supraclavicular, or Inguinal Adenopathy Neurological: Cranial nerves II-XII grossly intact, Neuro grossly intact Psych/Mental Status: Normal Affect, Appropriate Microbiology Past 72 Hours 07/17/20 18:50 Blood Culture (Wb) - Anticubital Right Bacteria Detection (PCR) - Final Streptococcus pneumoniae 07/17/20 18:50 Blood Culture (Wb) - Anticubital Right Blood Culture - Final Streptococcus pneumoniae 07/17/20 18:50 Urine, Clean Catch Urine Culture - Final Mixed Gram Positive Organisms 07/17/20 18:50 Blood Culture (Wb) - Anticubital Left Blood Culture - Final 07/18/20 Unknown Urine, Clean Catch Streptococcus pneumoniae Antigen (M - Final Streptococcus pneumonia Ag 07/18/20 Unknown Urine, Clean Catch Legionella Antigen - Final Laboratory Results 07/20/20 05:46: Sodium 134 L, Potassium 3.5, Chloride 96 L, Carbon Dioxide 30.0, Anion Gap 8, BUN 19 H, Creatinine 0.42 L, Estim Creat Clear Calc 128.92, Est GFR (MDRD) Af Amer 195, Est GFR (MDRD) Non-Af 161, BUN/Creatinine Ratio 44.9 H, Glucose 89, Calcium 8.6 Current Medications Acetaminophen (Acetaminophen 325 Mg Tablet) 650 mg PO Q6H PRN PRN PRN Reason: Pain Score 1-10/Temp > 100.7 F Last Admin: 07/18/20 22:57 Dose: 650 mg Documented by: Al Hydroxide/Mg Hydroxide (Mag Hydrox/Al Hydrox/Simeth 30 Ml Udc) 30 ml PO Q6H PRN PRN PRN Reason: Gastric Burning Last Admin: 07/19/20 23:22 Dose: 30 ml Documented by: Albuterol Sulfate (Albuterol Sulfate 18 Gm Inhaler (200 Puffs)) 1 puff IH Q4HWA.RT [facility] Dexamethasone (Dexamethasone 4 Mg Tablet) 6 mg PO DAILY [facility] Stop: 07/27/20 10:01 Last Admin: 07/20/20 08:49 Dose: 6 mg Documented by: Enoxaparin Sodium (Enoxaparin 40 Mg/0.4 Ml Syringe) 40 mg SC BID [facility] Last Admin: 07/20/20 08:48 Dose: 40 mg Documented by: Guaifenesin (Guaifenesin 600 Mg Tablet) 600 mg PO BID PRN PRN PRN Reason: congestion Last Admin: 07/18/20 22:58 Dose: 600 mg Documented by: Guaifenesin (Guaifenesin 10 Ml Udc (200mg/10ml)) 20 ml PO Q4H PRN PRN PRN Reason: COUGH Last Admin: 07/20/20 05:49 Dose: 20 ml Documented by: Sodium Chloride () 250 mls @ 15 mls/hr IV .[id number] PRN PRN Reason: Saline Flush Sodium Chloride () 250 mls @ 15 mls/hr IV .[id number] PRN PRN Reason: Additional IVPB Infusion Ceftriaxone Sodium 2 gm/ (Sodium Chloride) 50 mls @ 100 mls/hr IV Q24 [facility] Last Infusion: 07/20/20 09:56 Dose: Infused Documented by: Miscellaneous Information (Inhaler, Assist Devices 1 Each Spacer) 1 each INHALATION PRN PRN PRN Reason: WITH ALBUTEROL INHALER Morphine Sulfate (Morphine 2 Mg/Ml Syringe) 2 mg IV Q3H PRN PRN PRN Reason: Pain Score 6-10 Last Admin: 07/17/20 23:46 Dose: 2 mg Documented by: Nicotine (Nicotine 21 Mg Patch) 21 mg TD DAILY [facility] Last Admin: 07/20/20 08:47 Dose: 21 mg Documented by: Nicotine Polacrilex (Nicotine Polacrilex 2 Mg Gum) 2 mg PO Q2H PRN PRN PRN Reason: Nicotine Craving Last Admin: 07/18/20 22:47 Dose: 2 mg Documented by: Ondansetron HCl (Ondansetron 4 Mg/2 Ml Vial) 4 mg IV Q8H PRN PRN PRN Reason: NAUSEA/VOMITING Potassium Chloride (Potassium Chloride 20 Meq Tablet) 40 meq PO BIDCM [facility] Last Admin: 07/20/20 08:47 Dose: 40 meq Documented by: Pramipexole Dihydrochloride (Pramipexole Di-Hcl 0.125 Mg Tablet) 0.125 mg PO TID [facility] Last Admin: 07/20/20 05:49 Dose: 0.125 mg Documented by: Senna/Docusate Sodium (Senna/Docusate Sodium 1 Tablet) 2 tablet PO BID PRN PRN PRN Reason: Constipation Last Admin: 07/19/20 09:51 Dose: 2 tablet Documented by: Sodium Chloride (0.9% Saline Lock 10 Ml Syringe) 10 - 40 ml IV UD PRN PRN Reason: SALINE FLUSH Last Admin: 07/18/20 03:33 Dose: 10 ml Documented by: Throat Lozenges (Benzocaine/Menthol 1 Lozenge) 1 lozenge MUCOUS MEM Q2H PRN PRN PRN Reason: COUGH IF ROBITUSSIN INEFFECTIV Last Admin: 07/20/20 05:49 Dose: 1 lozenge Documented by: Umeclidinium Levan (Umeclidinium Levan Inhaler) 1 puff IH DAILY [facility] Last Admin: 07/20/20 08:52 Dose: 1 puff Documented by: Discharge Activity: Return to Normal Activity Weight Bearing Status: Weight bearing as tolerated Call your doctor if you observe: Fever of 101 or Higher, Shortness of breath, Dizziness, Fainting spells, Swelling in the ankles, Chest pain, Increased palpitations (irregular heartbeat), Calf discomfort Home Medications: Medications to take at Discharge albuterol sulfate 90 mcg/actuation breath activated powder inhaler 1 inh INHALATION Q6H PRN #1 ea 11/24/18 guaifenesin 600 mg tablet, extended release 12 hr 600 mg PO BID PRN #60 tab 11/24/18 Cephalexin [Keflex] 500 mg PO Q8 #24 cap 07/20/20 Oxybutynin [Ditropan] 5 mg PO BID #30 tab 07/20/20 Pramipexole Di-HCl [Mirapex] 0.5 mg PO QHS #30 tab 07/20/20 Following Prescriptions Were Given to Patient: Oxybutynin [Ditropan] 5 mg PO BID #30 tab Transmission Status: Received by [facility] Cephalexin [Keflex] 500 mg PO Q8 #24 cap Transmission Status: Received by [facility] Pramipexole Di-HCl [Mirapex] 0.5 mg PO QHS #30 tab Transmission Status: Received by [facility] Primary Care Physician: Mario Magana MD [STAFF PHYSICIAN] - Please follow up with your Primary Care Physician in: 1 WEEK. Disposition: Home Minutes spent on discharge:: 33 Patient Condition:: Stable Medical Necessity - Tobacco Use Smoking Status: Current every day smoker Tobacco Use: Cigarettes Meaningful Use Info Meaningful Use Diagnoses (Choose all that apply): None applicable Inpatient E&M: 99976 Disch Hosp
--- NOTE | 2020-07-22 14:31 | CASEMGMT ---
ANIRUDH ANAYA DC PHONE CALL DC DATE: 07/20/20 DC DISPOSITION: Home DC DIAGNOSIS: pneumonia, suspected covid LACE/STRATA: 05/14 F/U APPTS MADE PRIOR TO DC: no, weekend dc. PRESCRIPTIONS ACQUIRED BY PT: yes Intro role of CM to patient. Patient did have questions re: her medications. Reviewed all medications with her in detail. She states she is still short of breath at times and coughing which is giving her chest pain. Patient does not have a PCP, and is to quarantine for 5 more days. ANIRUDH ANAYA let pt know if symptoms worsen, she would need to come back to the ER. Patient states understanding. No further questions or concerns. Chi NINO RN [facility]
== END 2020-07-20 12:30 | disposition home or self-care (01) | DRG 871 ==
LOC: ED 21:02 → MS2 21:28
PROVIDERS: Admitting Provider Internal Medicine; Emergency Provider Student in an Organized Health Care Education/Training Program; Visit Provider Hospitalist
DX: A40.9 Streptococcal sepsis, unspecified (principal); J15.4 Pneumonia due to other streptococci; E43 Unspecified severe protein-calorie malnutrition; J44.0 Chronic obstructive pulmonary disease with (acute) lower respiratory infection; E87.1 Hypo-osmolality and hyponatremia; R65.20 Severe sepsis without septic shock; E83.42 Hypomagnesemia; E87.6 Hypokalemia; M19.90 Unspecified osteoarthritis, unspecified site; Z23 Encounter for immunization; E86.0 Dehydration; F17.210 Nicotine dependence, cigarettes, uncomplicated; R19.7 Diarrhea, unspecified; Z68.20 Body mass index [BMI] 20.0-20.9, adult
CPT/HCPCS: 36415; 71045; 71275; 80048; 80053; 80076; 81001; 83605; 83735; 83880; 84145; 84484; 85025; 85379; 87040; 87086; 87088; 87149; 87186; 87449; 87635; 93005; 94640; 97116; 97162; 97166; 97530; 97802; 99285; 99406; G0008; J7030; J7040; J7050; Q9967; 90686; A4216; J0696; J2405; U0002

== ENCOUNTER 2022-04-14 01:50 | Emergency (ER) | payer MEDICARE, MEDICAID, SELFPAY ==
[2022-04-14 01:50] VITALS: BP 146/80; PULSE 121; RESP 16; TEMP 36.6; O2SAT 99; BMI 25.4
--- NOTE | 2022-04-14 02:15 | EX.ED.DYSGE1 ---
HPI History of Present Illness Chief Complaint: Rash Informant: patient Onset/Context/Timing Onset: Hours (5-6) Context: Gradual Onset Timing: Continuous Quality: red, raised, pruritic Location: arms, upper back, breasts, abd Current Severity: Moderate Maximum Severity: Moderate Worsened by: nothing Relieved by: scratching Associated Symptoms Associated Symptoms: none Narrative Narrative: Patient states she broke out in hives tonight. The only treatment that she had at home to try was some generic cream of some sort but it is not helping. She states she has hives everywhere and she is not sure why. She states she does not have a new laundry detergent, soaps, or any other topicals that are clearly new/different. She states the last meal she had was about 7 or 8 hours prior to this and it was broccoli cheese soup which she has had before. She denies any acute dyspnea from this or edema or syncope/lightheadedness or any other systemic symptoms except for feeling anxious, which she states is a chronic problem, which is part of the reason why she does not have a PCP because she does not like going to see the doctor. [facility] Medical History (Updated 04/14/22 @ 02:[address] Rafi Monk MD) Arthritis Carpal tunnel syndrome Vitamin deficiency Home Medications prednisone 20 mg tablet 40 mg PO DAILY #10 TABLETS 04/14/22 [Rx Last Taken Unknown] Allergy/AdvReac Type Severity Reaction Status Date / Time No Known Allergies Allergy Verified 04/14/22 01:55 Family History (Updated 11/24/18 @ 16:59 by Emily Jay) Grandfather Alcoholism Mother Colon cancer Diabetes Father Myocardial infarction Brother Myocardial infarction Sister Ovarian cancer Surgical History (Updated 07/17/20 @ 17:[address] Hansel Raymond DO) History of Social History Smoking Status: Current every day smoker tobacco type: cigarettes alcohol intake: never substance use type: does not use what type of physical activity do you participate in: none ROS ROS ED Constitutional Constitutional ED: Denies chills or fever(s) Cardiovascular Cardiovascular: Denies chest pain, lightheadedness, palpitations, racing heartbeat or syncope Respiratory/Chest Respiratory/Chest: Reports other Details: Chronic cough, chronic dyspnea with exertion due to smoking; nothing acute or worse today Gastrointestinal Gastrointestinal: Denies abdominal pain, diarrhea or vomiting Integumentary Reports pruritus and rash Neurologic Neurologic: Denies headache(s), paresthesias or weakness Psychiatric Psychiatric: Reports anxiety; Denies suicidal ideation Allergic/Immunologic Allergic/Immunologic ED: Reports urticaria; Denies mouth swelling or tongue swelling EXAM Physical Exam Const Vital Signs: 04/14/22 01:50 Temperature 97.9 F Temperature Source Temporal Pulse Rate 121 H Respiratory Rate 16 Blood Pressure 146/80 H Blood Pressure Mean 102 Pulse Ox 99 Oxygen Delivery Method Room Air Positive well nourished and well developed General Appearance ED: well developed and NAD HEENT Reports moist mucous membranes HEENT Narrative: Normal oropharynx no lesions Eyes PERRL and EOMs intact bilaterally Neck no lymphadenopathy, supple and no JVD Resp normal respiratory effort and clear to auscultation bilaterally Cardio regular rate, regular rhythm and no murmurs Rate: Negative for tachycardic Extremity Extremity Narrative: Patches of coalescent urticaria on upper extremities. No edema x4. Normal pulses x4. Neuro oriented x3, CN's II-XII intact bilaterally, no sensory deficits noted and gait normal Motor Exam: strength 5/5 throughout Psych mental status grossly normal Skin Skin Narrative: Patchy urticaria throughout trunk and upper extremities. No significant urticaria on upper back, but she has a couple of scabs and one of them is scratched off and oozing a small amount of blood MDM MDM MDM Narrative Medical decision making narrative: Consistent with urticaria, unknown etiology. We will place her on prednisone, and give her some Benadryl prior to discharge as well. Discussed follow-up and reasons to return. Although she states she does not have a desire to see a PCP I encouraged her to and referred her to the next doctor on the unassigned list. Discharge Plan Triage Chief Complaint: Rash ED Provider: Rafi Monk Dx/Rx/DC Orders Clinical Impression: Urticaria Prescriptions: New prednisone 20 mg tablet 40 mg PO DAILY Qty: 10 0RF Primary Care Provider: Care Physician,No Primary Referrals: Nini Crane MD [Med Staff - Support Service Tech] - (for primary care -- call for an appointment!) Care Physician,No Primary [Primary Care Provider] - Activity Restrictions/Additional Instructions: Can also take Benadryl (diphenhydramine) 2 caplets as needed for itching/hives; hives will go away quickly with this medication, and when the medicine wears out they will return quickly as well; once the prednisone starts working it should keep them away. Disposition Disposition: Home, Self Care
[2022-04-14] MEDS: predniSONE 20 MG Tablet 40 MG PO (02:31)
[2022-04-14] MEDS: DiphenhydrAMINE 25 MG Capsule 50 MG PO ×2 (02:31→06:15)
== END 2022-04-14 06:15 | disposition home or self-care (01) ==
LOC: ED 02:27
PROVIDERS: Emergency Provider Emergency Medicine; Visit Provider Emergency Medicine
DX: L50.9 Urticaria, unspecified (principal); F17.210 Nicotine dependence, cigarettes, uncomplicated
CPT/HCPCS: 99285

== ENCOUNTER → 2025-04-09 | Outpatient (CLI) | payer MEDICARE, MEDICAID, SELFPAY ==
--- NOTE | 2025-04-09 11:27 | RAD_ITS ---
PROCEDURE: FOOT MIN 3 VIEWS 04/09/2025 REASON FOR EXAM: LEFT FOOT PAIN TECHNIQUE: Procedure Code: RADFO Modality: DX Procedure: FOOT MIN 3 VIEWS Left foot three views COMPARISON: None FINDINGS: There is no acute fracture, dislocation, abnormal bony formation, or destruction. An old healed fracture is noted in the 5th proximal phalanx which is well corticated. A benign-appearing calcaneal spur is noted. There is no soft tissue abnormality or radiopaque foreign body identified. There is no visible atherosclerosis. Mineralization is normal. RAD/Foot min 3 Views IMPRESSION: No acute fracture or dislocation is identified. Reading Location: [facility]
--- NOTE | 2025-04-09 11:27 | RAD_ITS ---
PROCEDURE: FOOT MIN 3 VIEWS 04/09/2025 REASON FOR EXAM: LEFT FOOT PAIN TECHNIQUE: Procedure Code: RADFO Modality: DX Procedure: FOOT MIN 3 VIEWS Left foot three views COMPARISON: None FINDINGS: There is no acute fracture, dislocation, abnormal bony formation, or destruction. An old healed fracture is noted in the 5th proximal phalanx which is well corticated. A benign-appearing calcaneal spur is noted. There is no soft tissue abnormality or radiopaque foreign body identified. There is no visible atherosclerosis. Mineralization is normal. RAD/Foot min 3 Views IMPRESSION: No acute fracture or dislocation is identified. Reading Location: [facility]
== END | disposition home or self-care (01) ==
LOC: MTRAD 11:27
PROVIDERS: Referring Provider Physician Assistant; Visit Provider Physician Assistant
DX: M79.672 Pain in left foot (principal)
CPT/HCPCS: 73630